=== PATIENT | female | born 1940 | race Caucasian/White ===

== ENCOUNTER 2019-09-08 14:14 | Emergency (ER) | payer MEDICARE, SELFPAY ==
[2019-09-08 14:18] VITALS: BP 147/65; PULSE 87; RESP 15; TEMP 36.8; O2SAT 95
--- NOTE | 2019-09-08 15:17 | ED.BACK ---
HPI - Back Pain/Injury <Jenny Upton PA-C - Last Filed: 09/08/19 22:25> General Chief Complaint: Back Pain/Injury Stated Complaint: Fell and having pain is worse in lower back Time Seen by Provider: 09/08/19 14:55 Source: patient and family Limitations: no limitations History of Present Illness HPI Narrative: This is an 79-year-old hx of hearing loss who lives in an elder care facility called [facility] and was brought in by her daughter to the emergency department because she has been having low back pain since she had a fall on Friday at the facility. Caregivers reported that she was found sitting on the ground on the carpet with fiore in her hand, that her walker was not nearby and she was not using it at the time of the fall. Since that time she has been able to ambulate and was actually doing better yesterday ( Friday), but then today her back pain increased again and her daughter was concerned and brought her in for assessment. Her daughter reports that she has had numerous fractures, including fracture of her coccyx previously, but no other spinal column fractures. She has otherwise been in her normal state of health and has no complaints of pain other than her low back in the middle. She states the pain does not radiate down her leg or to anywhere else in her body. And she says that she has been able to walk with her walker since the fall occurred but she ?does not get around a whole lot these days?. Daughter reports that she does not take any blood thinners, reports that she does not do well on morphine because it makes her have weird hallucinations, but other than that her only allergy is to penicillin. She has been taking Tylenol for the pain which has given her limited relief. She denies numbness, tingling, fever, shortness of breath, weakness of her extremities, urinary symptoms, loss of bowel or bladder function, saddle paresthesias, abdominal pain or any other symptoms. MD Complaint: back pain and back injury Onset (ago): day(s) (2) Duration: constant Similar Symptoms Previously: No Location: lumbar spine and sacrum Severity: moderate Quality: aching Radiation: none Severity scale (1-10): 9 (with certain movements, 1 when still) Relieving factors: immobilization and medication (limited relief with tylenol) Exacerbating factors: movement, supine positioning and walking Context: fall Associated symptoms: denies other symptoms Treatments prior to arrival: acetaminophen Related Data Previous Rx's Medication Instructions Recorded lidocaine 2 patch TOP DAILY #30 each 09/08/19 oxycodone 10 mg PO BID PRN #12 tab NS 09/08/19 sennosides [senna] 8.6 mg PO BID PRN #10 cap 09/08/19 Allergies Allergy/AdvReac Type Severity Reaction Status Date / Time morphine Allergy Verified 09/08/19 14:22 Penicillins Allergy Verified 09/08/19 14:22 Review of Systems <Jenny Upton PA-C - Last Filed: 09/08/19 22:25> Review of Systems Narrative: GENERAL: Denies chills, fatigue, malaise, fever, sweats. HEENT: Denies sinus pain, ear pain, sore throat, difficulty swallowing, dizziness. RESPIRATORY: Denies dyspnea, cough, wheezing, hemoptysis, sputum. CARDIOVASCULAR: Denies chest pain, palpitations, orthopnea, edema, GASTROINTESTINAL: Denies nausea, vomiting, abdominal pain, diarrhea, constipation, melena. : Denies dysuria, frequency, incontinence, hematuria, urinary retention. MUSCULOSKELETAL: Positive for bony pain over the lumbar spine area and sacrum, denies weakness, joint pain SKIN: Denies rash, skin lesions, or other NEUROLOGIC: Denies weakness, headache, numbness, change in speech, confusion, seizures, incoordination, uses a walker to ambulate chronically. PSYCHIATRIC: No concerning psychosocial issues. 12 point review of systems is negative except for those stated above Patient History <Jenny Upton PA-C - Last Filed: 09/08/19 22:25> Social History Smoking Status: Unknown if ever smoked Smoking Status: Unknown if ever smoked alcohol intake frequency: holidays/special occasions only Substance Use Type: does not use Exam <Jenny Upton PA-C - Last Filed: 09/08/19 22:25> Narrative Exam Narrative: GENERAL: 79 year old patient appears stated age. Well-nourished, well-developed patient, in mild distress. HEAD: Atraumatic. Normocephalic. EYES: Pupils equal round and reactive. Extraocular motions intact. No scleral icterus. No injection or drainage. ENT: Nose without bleeding, purulent drainage. Throat without erythema, tonsillar hypertrophy or exudate. Airway patent. NECK: Trachea midline. Non tender CARDIOVASCULAR: Regular rate and rhythm without murmurs, gallops, or rubs. RESPIRATORY: Clear to auscultation. Breath sounds equal bilaterally. No wheezes, rales, or rhonchi. GASTROINTESTINAL: Abdomen soft, non-tender, nondistended. EXTREMITIES: No edema or joint tenderness. BACK: She is very tender over the lumbar and sacral spine midline over the processes most notably L4-L6, and over the sacrum midline; Slightly kyphotic, without deformity or crepitance. No flank tenderness, no paraspinal muscle tenderness. NEURO: AOx3. SKIN: No rash or erythema of visible areas Initial Vital Signs Initial Vital Signs: Vital Signs Temperature 98.2 F 09/08/19 14:18 Pulse Rate 87 09/08/19 14:18 Respiratory Rate 15 09/08/19 14:18 Blood Pressure 147/65 H 09/08/19 14:18 Pulse Oximetry 95 09/08/19 14:18 <Keron Solano DO - Last Filed: 09/09/19 07:11> Initial Vital Signs Initial Vital Signs: Vital Signs Temperature 98.2 F 09/08/19 14:18 Pulse Rate 87 09/08/19 14:18 Respiratory Rate 15 09/08/19 14:18 Blood Pressure 147/65 H 09/08/19 14:18 Pulse Oximetry 95 09/08/19 14:18 Course <Jenny Upton PA-C - Last Filed: 09/08/19 22:25> Orders Ordered: Discontinued Medications Oxycodone HCl (Oxycontin) 10 mg PO BID [facility] Oxycodone/Acetaminophen (Percocet 5/325) 1 tab PO NOW ONE Stop: 09/08/19 16:28 Last Admin: 09/08/19 16:38 Dose: 1 tab Documented by: VJ Vital Signs Vital signs: Vital Signs - 8 hr 09/08/19 17:56 Temperature 98.3 F Pulse Rate 82 Respiratory Rate 16 Blood Pressure 129/63 Pulse Oximetry 97 <DO Viviana Suarez Last Filed: 09/09/19 07:11> Orders Ordered: Discontinued Medications Oxycodone HCl (Oxycontin) 10 mg PO BID DANIELA Oxycodone/Acetaminophen (Percocet 5/325) 1 tab PO NOW ONE Stop: 09/08/19 16:28 Last Admin: 09/08/19 16:38 Dose: 1 tab Documented by: VJ Vital Signs Vital signs: Vital Signs - 8 hr 09/08/19 17:56 Temperature 98.3 F Pulse Rate 82 Respiratory Rate 16 Blood Pressure 129/63 Pulse Oximetry 97 MDM - Back Pain/Injury <Jenny Upton PA-C - Last Filed: 09/08/19 22:25> Imaging Data xray sacrum: Attestation: I personally reviewed and interpreted this imaging study as follows: Radiologist's Impression: [address] [address] XRay Report Signed Patient: Tari OlsonMR#: [id number] : 9Acct:[id number] Age/Sex: 79 / FDate of Service: 09/08/19 Loc: ED Accession Number: [id number] Procedure: XR sacrum coccyx min 2V Ordering Provider: Jenny Upton P.A-C PROCEDURE: XR SACRUM COCCYX MIN 2V INDICATIONS: fall, LBP TECHNIQUE: 3 views of the sacrum and coccyx acquired. COMPARISON: None. FINDINGS: Bones: No dislocations. No suspicious bony lesions. There is a partially visualized L2 moderately severe compression fracture but chronicity is uncertain Soft tissues: Visualized bowel gas pattern is normal. No suspicious soft tissue densities. IMPRESSION: No sacral injury is found. Note is made of an L2 moderately severe compression fracture but chronicity is uncertain. Additionally, through the midline of the low pelvis a partially visualized catheter can be seen to be present, perhaps a ventriculostomy catheter. No relevant comparison plain films are available for review. Please also see same date lumbosacral spine study identifying additional compression fractures. Dictated by: Clayton Simeon M.D. on 09/08/2019 at 16:54 Approved by: Clayton Simeon M.D. on 09/08/2019 at 16:56 xray lumbar: Radiologist's Impression: [address] [address] XRay Report Signed Patient: Tari OlsonMR#: [id number] : 9Acct:[id number] Age/Sex: 79 / FDate of Service: 09/08/19 Loc: ED Accession Number: [id number] Procedure: XR lumbar spine 2-3V Ordering Provider: Jenny Upton P.A-C PROCEDURE: XR LUMBAR SPINE 2-3V INDICATIONS: fall, Lumbar/sacral pain TECHNIQUE: 3 views of the lumbar spine were acquired. COMPARISON: None. FINDINGS: Bones: 5 [id number] vertebrae are present. There is mild convex rightward bony alignment. There are several vertebral body compression fractures, most prominent at L2 but also present at the upper endplate of L1 and T12.. No suspicious bony lesions. Soft tissues: Overlying bowel gas pattern is normal. No suspicious soft tissue calcifications. IMPRESSION: Chronicity of the 3 identified compression fractures from T12-L2 is indeterminant but in the setting of acute onset pain after trauma acute fractures would be suspected. MR scanning can assist in differentiating between acute versus chronic. No prior comparisons through this area. Dictated by: Clayton Simeon M.D. on 09/08/2019 at 16:53 Approved by: Clayton Simeon M.D. on 09/08/2019 at 16:54 [facility] Narrative Medical decision making narrative: This is a well-appearing 79-year-old who uses a walker chronically, has kyphosis and a history of multiple extremity fractures and coccyx fx who presents with her daughter from a care facility where she had a fall on Friday, and presents today with worsening back pain since the time of that fall. Patient is otherwise well and has no other complaints of pain and has been in normal state of health, is not on blood thinners, labs were not ordered. X-ray revealed T12-L1 and L2 compression fractures of unknown chronicity, however given her recent acute injury and new onset of acute pain I suspect that these fractures are a result of her fall and the cause of her current low back pain. After discussion with attending physician Dr. Solano, outpatient follow up was deemed appropriate She and her daughter were encouraged to see Orthopedics Spine at [facility], she was provided with prescriptions to the online pharmacy associated with [facility], ([facility]) topical analgesia as well as a short-term prescription of opioid pain medicine, advised she can continue using tylenol for pain also, and prescribed senna for opioid induced constipation prevention. She was encouraged to continue to ambulate with her walker as usual and she and her daughter were provided with emergency return precautions. Discharge Plan Departure Patient Disposition: Home Clinical Impression: Acute low back pain due to trauma Closed compression fracture of lumbar vertebra Qualifiers: Encounter type: initial encounter Lumbar vertebra fracture level: L2 Qualified Code(s): S32.020A - Wedge compression fracture of second lumbar vertebra, initial encounter for closed fracture Closed compression fracture of thoracic vertebra Qualifiers: Encounter type: initial encounter Qualified Code(s): S22.000A - Wedge compression fracture of unspecified thoracic vertebra, initial encounter for closed fracture Compression fx, lumbar spine Qualifiers: Encounter type: initial encounter Lumbar vertebra fracture level: L1 Qualified Code(s): S32.010A - Wedge compression fracture of first lumbar vertebra, initial encounter for closed fracture Discharge Date/Time: 09/08/19 17:58 Instructions: Vertebral Compression Fracture, DI for Vertebral Fracture, DI for Low Back Pain Activity Restrictions/Additional Instructions: Thank you for letting us the primary care today in the emergency department. There is no evidence of an emergent or life threatening illness at this time, but follow up with your doctor in 1-2 days is recommended nonetheless to continue to rule out serious underlying causes of your symptoms. Please call the office for an appointment. Please return to the Emergency Department for any worsening or persistent symptoms. Please take medications as directed. The x-rays did suggest that there are compression fractures the thoracic 12th vertebra as well as the lumbar 1st and 2nd vertebra. These may be acute fractures and this could explain the pain that you have been having since her fall on Friday. It is very important that you follow-up with orthopedics in the next 2-5 days for further evaluation. I provided a referral for the [facility] and Tari will need to see someone who specializes in spine. I am prescribing medicine to help with pain control as well as medicine to help you ensure you have regular bowel movements, as pain medicines can sometimes slow things down. It is safe to continue to take over the counter tylenol for pain also. All other medicines were E-prescribed to [facility] pharmacy as per your request. Tari should continue to do her normal activities as much as possible, including walking with her walker, this is important for her healing and maintaining her level of mobility. If she develops new symptoms that are concerning such as loss of bowel or bladder function, numbness or tingling in her lower extremities or genital area, fever, worsening pain, or any other symptoms of concern please seek medical care return to the emergency department. Prescriptions: New lidocaine 5 % adhesive patch,medicated 2 patch TOP DAILY Qty: 30 RF: 0 senna 8.6 mg capsule 8.6 mg PO BID PRN (Reason: constipation) Qty: 10 RF: 0 oxycodone 10 mg tablet 10 mg PO BID PRN (Reason: pain) Qty: 12 RF: 0 Referrals: [facility] [Provider Group] (Ortho spine) Katiana Olvera MD [Primary Care Provider] - <Keron Solano DO - Last Filed: 09/09/19 07:11> Cosign ED Attending Cosignature Attestation: Dr Solano Co-Sign Statement: I was available for consultation during this patient's emergency department visit. This chart is signed by myself for administrative purposes only. I did not have direct contact with this patient during this visit. They were seen independently by the APC.
--- NOTE | 2019-09-08 15:34 | DI.RAD.S_ITS ---
PROCEDURE: XR LUMBAR SPINE 2-3V INDICATIONS: fall, Lumbar/sacral pain TECHNIQUE: 3 views of the lumbar spine were acquired. COMPARISON: None. FINDINGS: Bones: 5 [id number] vertebrae are present. There is mild convex rightward bony alignment. There are several vertebral body compression fractures, most prominent at L2 but also present at the upper endplate of L1 and T12.. No suspicious bony lesions. Soft tissues: Overlying bowel gas pattern is normal. No suspicious soft tissue calcifications. IMPRESSION: Chronicity of the 3 identified compression fractures from T12-L2 is indeterminant but in the setting of acute onset pain after trauma acute fractures would be suspected. MR scanning can assist in differentiating between acute versus chronic. No prior comparisons through this area. Dictated by: Clayton Simeon M.D. on 09/08/2019 at 16:53 Approved by: Clayton Simeon M.D. on 09/08/2019 at 16:54
--- NOTE | 2019-09-08 15:34 | DI.RAD.S_ITS ---
PROCEDURE: XR SACRUM COCCYX MIN 2V INDICATIONS: fall, LBP TECHNIQUE: 3 views of the sacrum and coccyx acquired. COMPARISON: None. FINDINGS: Bones: No dislocations. No suspicious bony lesions. There is a partially visualized L2 moderately severe compression fracture but chronicity is uncertain Soft tissues: Visualized bowel gas pattern is normal. No suspicious soft tissue densities. IMPRESSION: No sacral injury is found. Note is made of an L2 moderately severe compression fracture but chronicity is uncertain. Additionally, through the midline of the low pelvis a partially visualized catheter can be seen to be present, perhaps a ventriculostomy catheter. No relevant comparison plain films are available for review. Please also see same date lumbosacral spine study identifying additional compression fractures. Dictated by: Clayton Simeon M.D. on 09/08/2019 at 16:54 Approved by: Clayton Simeon M.D. on 09/08/2019 at 16:56
--- NOTE | 2019-09-08 16:22 | PC.NURSE ---
pt up to bedside commode but no urine output noted.
[2019-09-08] MEDS: OXYCODONE/ACETAMINOPHEN 5/325 TABLET 1 TAB PO (16:38)
[2019-09-08 17:56] VITALS: BP 129/63; PULSE 82; RESP 16; TEMP 36.8; O2SAT 97
== END 2019-09-08 17:58 | disposition home or self-care (01) ==
PROVIDERS: Emergency Provider Student in an Organized Health Care Education/Training Program; PCP Internal Medicine
DX: S32.020A Wedge compression fracture of second lumbar vertebra, initial encounter for closed fracture (principal); S22.000A Wedge compression fracture of unspecified thoracic vertebra, initial encounter for closed fracture; S32.010A Wedge compression fracture of first lumbar vertebra, initial encounter for closed fracture; W19.XXXA Unspecified fall, initial encounter
CPT/HCPCS: 72100; 72220; 99283

== ENCOUNTER → 2019-09-29 13:47 | Outpatient (CLI) | payer MEDICARE, SELFPAY | PROVIDERS: PCP Internal Medicine; Referring Provider Orthopaedic Surgery; Visit Provider Orthopaedic Surgery | DX: M48.56XA Collapsed vertebra, not elsewhere classified, lumbar region, initial encounter for fracture (principal); Z53.8 Procedure and treatment not carried out for other reasons ==

== ENCOUNTER → 2020-08-21 15:38 | Outpatient (CLI) | payer MEDICARE, SELFPAY ==
[2020-08-21 17:58] LABS: Alanine Aminotransferase 11 IU/L (<35); Albumin 4.1 g/dL (3.5-5.0); Albumin Globulin Ratio 1.2 (1.0-2.8); Alkaline Phosphatase 73 U/L (38-126); Aspartate Aminotransferase 19 IU/L (14-36); Bilirubin Total 0.1 mg/dL (0.2-1.3); Blood Urea Nitrogen 22 mg/dL (7-17); Calcium 9.7 mg/dL (8.4-10.2); Carbon Dioxide 34 mmol/L (22-32); Chloride 100 mmol/L (98-107); Cholesterol 210 mg/dL (140-199); Estimated Glomerular Filt Rate > 60.0 mL/min (>60); Globulin 3.3 g/dL (1.7-4.1); Glucose 84 mg/dL (80-110); HDL Cholesterol 58 mg/dL (40-60); HEMOLYSIS < 15 (0-50); LDL Cholesterol Calculated 139 mg/dL (<100); Potassium 4.3 mmol/L (3.4-5.1); Sodium 141 mmol/L (137-145); Total Protein 7.4 g/dL (6.3-8.2); Triglycerides 67 mg/dL (35-150)
== END ==
PROVIDERS: PCP Internal Medicine; Referring Provider Internal Medicine; Visit Provider Internal Medicine
DX: E78.5 Hyperlipidemia, unspecified (principal)
CPT/HCPCS: 36415; 80053; 80061

== ENCOUNTER 2021-01-11 18:22 | Emergency (ER) | payer MEDICARE, SELFPAY ==
--- NOTE | 2021-01-11 18:28 | DI.CT.S_ITS ---
PROCEDURE: CT PEL WO CON INDICATIONS: fall with sacral / pelvic pain TECHNIQUE: Noncontrast 3 mm axial sections acquired through the bony pelvis, with coronal and sagittal reformatting. COMPARISON: None. FINDINGS: Image quality: Excellent. Bones: Diffuse osteopenia. No suspicious intraosseous lesions. Minimal grade 1 anterolisthesis of L4 on L5 likely related to moderate facet arthropathy. No acute compression fractures of the lower lumbar spine. No definite fractures of the sacrum. There is mild posterior displacement of the distal coccyx which may be chronic versus possible subluxation. No hip fracture seen. Soft tissues: Extensive fecal material seen throughout the imaged bowel and colon. Scattered colonic diverticulosis without acute diverticulitis. Distal ventriculoperitoneal shunt tubing terminates in the lower abdomen. No surrounding fluid collections. Dense atherosclerotic calcifications of the abdominal aorta and iliac vessels without aneurysmal dilatation. No pelvic adenopathy. Visualized urinary bladder is unremarkable. IMPRESSION: 1. Diffuse osteopenia. 2. No definite fractures identified in the sacrum. No definite hip fracture seen on either side. Mild posterior displacement mint of the coccyx, likely chronic. 3. Multilevel lower lumbar spondylosis with minimal grade 1 anterolisthesis of L4 on L5 likely related to moderate facet arthropathy. No acute compression fractures. 4. Colonic diverticulosis without acute diverticulitis. 5. Atherosclerosis. Dictated by: Rashel Parish M.D. on 01/11/2021 at 18:54 Approved by: Rashel Parish M.D. on 01/11/2021 at 19:03
[2021-01-11 18:29] VITALS: BP 130/69; PULSE 71; RESP 16; TEMP 36.3; BMI 21.2
--- NOTE | 2021-01-11 18:29 | ED_ITS ---
HPI - Back Pain/Injury General Chief Complaint: Fall Stated Complaint: GLF Time Seen by Provider: 01/11/21 18:28 History of Present Illness HPI Narrative: 80F nonsmoker from a correction with a DNR presents by EMS for evaluation of low back pain after a ground level fall. This fall was witnessed and she landed on her tailbone and complains of pain in her tailbone and lower back. She denies any head neck or upper back pain. She has no hip pain. She denies any prodromal symptoms such as dizziness, weakness or lightheadedness. She is a poor historian and much of the history is through paramedics and folks from the house Related Data Previous Rx's Medication Instructions Recorded lidocaine 5 % topical patch 2 patch TOP DAILY #30 each 09/08/19 oxycodone 10 mg tablet 10 mg PO BID PRN #12 tab NS 09/08/19 sennosides 8.6 mg capsule (senna) 8.6 mg PO BID PRN #10 cap 09/08/19 oxycodone 5 mg tablet 5 mg PO Q4-6H PRN #20 tab 01/11/21 Allergies Allergy/AdvReac Type Severity Reaction Status Date / Time morphine Allergy Verified 09/08/19 14:22 Penicillins Allergy Verified 09/08/19 14:22 Review of Systems Review of Systems ROS Unobtainable: Unobtainable due to mental status/LOC Patient History Social History Smoking Status: Unknown if ever smoked Smoking Status: Unknown if ever smoked alcohol intake frequency: holidays/special occasions only Substance Use Type: does not use Exam Narrative Exam Narrative: GENERAL: [80 year old patient appears stated age. Pleasantly confused, GCS 13 HEAD: Atraumatic. Normocephalic. EYES: Pupils equal round and reactive. Extraocular motions intact. No scleral icterus. No injection or drainage. ENT: Nose without bleeding, purulent drainage. Throat without erythema, tonsillar hypertrophy or exudate. Airway patent. NECK: Trachea midline. Non tender CARDIOVASCULAR: Regular rate and rhythm without murmurs, gallops, or rubs. RESPIRATORY: Clear to auscultation. Breath sounds equal bilaterally. No wheezes, rales, or rhonchi. GASTROINTESTINAL: Abdomen soft, non-tender, nondistended. EXTREMITIES: No edema or joint tenderness. No hip or knee pain BACK: Tender in the right upper sacrum and coccyx, no midline tenderness, step- offs or crepitance in the spinal column NEURO: AOx3. SKIN: No rash or erythema of visible areas Initial Vital Signs Initial Vital Signs: Vital Signs Temperature 97.4 F L 01/11/21 18:29 Pulse Rate 71 01/11/21 18:29 Respiratory Rate 16 01/11/21 18:29 Blood Pressure 130/69 01/11/21 18:29 Course Orders Ordered: Discontinued Medications Lidocaine (Lidocaine Patch 1 Each Adh..Patch) 1 each TOP NOW ONE Stop: 01/11/21 19:51 Last Admin: 01/11/21 20:18 Dose: 1 each Documented by: ALEJANDRA Oxycodone/Acetaminophen (Oxycodone/Apap 5/325 Prepack) 1 bottle MISC SEEINSTR ONE Stop: 01/11/21 19:51 Last Admin: 01/11/21 20:17 Dose: 1 bottle Documented by: ALEJANDRA Vital Signs Vital signs: Vital Signs - 8 hr 01/11/21 20:35 Pulse Rate 80 Respiratory Rate 20 Blood Pressure 140/83 Pulse Oximetry 90 L MDM - Back Pain/Injury Imaging Data CT scan - abdomen/pelvis: Radiologist's Impression: [place] [address] CT Scan Report Signed Patient: Tari Olson MR#: [id number] : 1940 Acct:[id number] Age/Sex: 80 / F Date of Service: 01/11/21 Loc: ED Accession Number: [id number] ?? Procedure: CT pelvis wo con Ordering Provider: Jv Wagner D.O. PROCEDURE:? CT PEL WO CON ? INDICATIONS:? fall with sacral / pelvic pain ? TECHNIQUE:? Noncontrast 3 mm axial sections acquired through the bony pelvis, with coronal and sagittal reformatting.? ? COMPARISON:? None. ? FINDINGS:? Image quality:? Excellent.? ? Bones:? Diffuse osteopenia.? No suspicious intraosseous lesions.? Minimal grade 1 anterolisthesis of L4 on L5 likely related to moderate facet arthropathy.? No acute compression fractures of the lower lumbar spine.? No definite fractures of the sacrum.? There is mild posterior displacement of the distal coccyx which may be chronic versus possible subluxation.? No hip fracture seen. ? Soft tissues:? Extensive fecal material seen throughout the imaged bowel and c olon.? Scattered colonic diverticulosis without acute diverticulitis.? Distal ventriculoperitoneal shunt tubing terminates in the lower abdomen.? No surrounding fluid collections.? Dense atherosclerotic calcifications of the abdominal aorta and iliac vessels without aneurysmal dilatation.? No pelvic adenopathy.? Visualized urinary bladder is unremarkable. ? ? IMPRESSION:? ? 1. Diffuse osteopenia. ? 2. No definite fractures identified in the sacrum.? No definite hip fracture seen on either side.? Mild posterior displacement mint of the coccyx, likely chronic. ? 3. Multilevel lower lumbar spondylosis with minimal grade 1 anterolisthesis of L4 on L5 likely related to moderate facet arthropathy.? No acute compression fractures. ? 4. Colonic diverticulosis without acute diverticulitis. ? 5. Atherosclerosis.? Dictated by: Rashel Parish M.D. on 01/11/2021 at 18:54 ? ? Approved by: Rashel Parish M.D. on 01/11/2021 at 19:03 ? Discharge Plan Departure Patient Disposition: Home Clinical Impression: Coccyx contusion Qualifiers: Encounter type: initial encounter Qualified Code(s): S30.0XXA - Contusion of lower back and pelvis, initial encounter Instructions: How to Prevent Falls Prescriptions: New oxycodone 5 mg tablet 5 mg PO Q4-6H PRN (Reason: pain) Qty: 20 RF: 0 No Action lidocaine 5 % adhesive patch,medicated 2 patch TOP DAILY Qty: 30 RF: 0 senna 8.6 mg capsule 8.6 mg PO BID PRN (Reason: constipation) Qty: 10 RF: 0 oxycodone 10 mg tablet 10 mg PO BID PRN (Reason: pain) Qty: 12 RF: 0 Referrals: Katiana Olvera MD [Primary Care Provider] -
[2021-01-11] MEDS: OXYCODONE/APAP 5/325 PREPACK 1 BOTTLE MISC (20:17)
[2021-01-11] MEDS: LIDOCAINE PATCH 1 EACH ADH..PATCH TOP (20:18)
[2021-01-11 20:35] VITALS: BP 140/83; PULSE 80; RESP 20; O2SAT 90
== END 2021-01-11 21:10 | disposition home or self-care (01) ==
PROVIDERS: Emergency Provider Emergency Medicine; PCP Internal Medicine
DX: S30.0XXA Contusion of lower back and pelvis, initial encounter (principal); W19.XXXA Unspecified fall, initial encounter
CPT/HCPCS: 72192; 99282; 99284

== ENCOUNTER 2022-01-14 23:32 | Observation (INO) | payer MEDICARE, SELFPAY ==
--- NOTE | 2022-01-14 23:34 | DI.RAD.S_ITS ---
PROCEDURE: XR CHEST 1V INDICATIONS: fall, trauma, preop TECHNIQUE: One view of the chest was acquired. COMPARISON: None. FINDINGS: Surgical changes and devices: None. Lungs and pleura: Lungs are clear. No pleural effusions or pneumothorax. Mediastinum: Mediastinal contours appear normal. Heart size is normal. Bones and chest wall: There is deformity of the proximal humerus consistent with sequelae of a prior fracture of the humeral head and neck. No suspicious bony lesions. Overlying soft tissues appear unremarkable. IMPRESSION: 1. No acute cardiopulmonary disease. Dictated by: Octaviano Brunson M.D. on 01/15/2022 at 1:15 Approved by: Octaviano Brunson M.D. on 01/15/2022 at 1:16
[2022-01-14 23:35] VITALS: BP 113/58; PULSE 87; RESP 18; TEMP 37; O2SAT 89; BMI 18.4
[2022-01-14 23:48] LABS: Add Manual Diff / Slide Review NO; Basophils Absolute Auto 0 /uL (0-100); Basophils Percent Auto 0.2 % (0-2); Eosinophils Absolute Auto 0 /uL (0-450); Eosinophils Percent Auto 0.3 % (2-4); Hematocrit 35.9 % (36-46); Hemoglobin 12.1 g/dL (12.0-16.0); Lymphocytes Absolute Auto 700 /uL (1100-4500); Lymphocytes Percent Auto 7.1 % (25-40); Mean Corpuscular HGB Conc 33.7 % (30-36); Mean Corpuscular Volume 94.9 fL (80-100); Monocytes Absolute Auto 800 /uL (0-900); Monocytes Percent Auto 8.3 % (3-14); Neutrophils Absolute Auto 8400 /uL (1500-7000); Neutrophils Percent Auto 84.1 % (50-75); Platelet Count 233 X10^3/uL (150-400); Red Blood Cell Count 3.79 X10^6/uL (4.0-5.2); Red Cell Distribution Width 14.1 % (11.6-14.8)
[2022-01-14 23:54] LABS: Alanine Aminotransferase 15 IU/L (<35); Albumin 4.2 g/dL (3.5-5.0); Albumin Globulin Ratio 1.3 (1.0-2.8); Alkaline Phosphatase 72 U/L (38-126); Aspartate Aminotransferase 19 IU/L (14-36); BUN Creatinine Ratio 36.1 (6-22); Bilirubin Total 0.2 mg/dL (0.2-1.3); Blood Urea Nitrogen 22 mg/dL (7-17); Calcium 9.2 mg/dL (8.4-10.2); Carbon Dioxide 30 mmol/L (22-32); Chloride 99 mmol/L (98-107); Creatine Kinase 47 U/L (30-135); Estimated Glomerular Filt Rate > 60 mL/min (>60); Globulin 3.3 g/dL (1.7-4.1); Glucose 147 mg/dL (80-110); HEMOLYSIS < 15 (0-50); Magnesium 1.9 mg/dL (1.6-2.3); Potassium 4.4 mmol/L (3.4-5.1); Sodium 139 mmol/L (137-145); Total Protein 7.5 g/dL (6.3-8.2)
[2022-01-15 00:06] LABS: NT-proBNP (BNP-Adult 18+) 196 pg/mL (<450); Troponin I < 0.012 ng/mL (0.01-0.034)
[2022-01-15] MEDS: SODIUM CHLORIDE 0.9% 500 ML 1000 ML IV (00:07)
[2022-01-15 00:09] LABS: COVID19 -Nasal RAPID Negative (Negative)
[2022-01-15 00:25] LABS: PCO2 ABG 47.2 mmHg (35-45); pH ABG 7.42 (7.35-7.45)
[2022-01-15 00:26] LABS: Fractionated Inspired Oxygen 28; HCO3 ABG 30 mmol/L (22-26); Oxygen Saturation ABG 97 % (95-100); PO2 ABG 92 mmHg (80-100); TCO2 ABG 32 mmol/L (21-31)
--- NOTE | 2022-01-15 00:46 | ED_ITS ---
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 The patient is historically a very poor historian and has short-term memory loss and family states that her current condition is at her neurologic baseline. EMS was activated when the patient was too weak to ambulate to the bathroom. She lives at an adult alf and can normally get herself to the bathroom with the use of a walker under her own power but tonight she required distance of 2 CNAs. EMS found her to be in respiratory distress with pulse ox in the mid 80s on their arrival, she was put on 4 L by nasal cannula and brought here. She is had no recent hospitalizations, history of blood clot and denies any fever or chills. She has no chest pain, nausea, vomiting or diarrhea. She is a DNR with a focus on comfort, POA is at the bedside and is in agreement with treatment using antibiotics if indicated Related Data Previous Rx's Medication Instructions Recorded lidocaine 5 % topical patch 2 patch topical DAILY #30 ea 09/08/19 oxycodone 10 mg tablet 10 mg PO BID PRN pain #12 tabs 09/08/19 sennosides 8.6 mg capsule (senna) 8.6 mg PO BID PRN constipation #10 09/08/19 caps oxycodone 5 mg tablet 5 mg PO Q4-6H PRN pain #20 tabs 01/11/21 Allergies Allergy/AdvReac Type Severity Reaction Status Date / Time morphine Allergy Verified 09/08/19 14:22 Penicillins Allergy Verified 09/08/19 14:22 Review of Systems Review of Systems Narrative: GENERAL: See HPI HEENT: Denies sinus pain, ear pain, sore throat, difficulty swallowing, dizziness. RESPIRATORY: See HPI CARDIOVASCULAR: Denies chest pain, palpitations, orthopnea, edema, GASTROINTESTINAL: Denies nausea, vomiting, abdominal pain, diarrhea, constipation, melena. : Denies dysuria, frequency, incontinence, hematuria, urinary retention. MUSCULOSKELETAL: denies weakness, joint pain, or bony pain SKIN: Denies rash, skin lesions, or other NEUROLOGIC: Denies weakness, headache, numbness, change in speech, confusion, seizures, incoordination. PSYCHIATRIC: No concerning psychosocial issues. 12 point review of systems is negative except for those stated above Patient History Social History Smoking Status: Never smoker Smoking Status: Never smoker alcohol intake frequency: holidays/special occasions only Substance Use Type: does not use Exam Narrative Exam Narrative: GENERAL: [81] year old patient appears stated age. Well-developed patient, in mild distress. Pleasantly confused, GCS 14 HEAD: Atraumatic. Normocephalic. EYES: Pupils equal round and reactive. Extraocular motions intact. No scleral icterus. No injection or drainage. Left eye ptosis, consequence of prior neurosurgery ENT: Nose without bleeding, purulent drainage. Throat without erythema, tonsillar hypertrophy or exudate. Airway patent. NECK: Trachea midline. Non tender CARDIOVASCULAR: Regular rate and rhythm without murmurs, gallops, or rubs. RESPIRATORY: Some increased work of breathing, wet sounding cough from the door GASTROINTESTINAL: Abdomen soft, non-tender, nondistended. EXTREMITIES: No edema or joint tenderness. BACK: Nontender without deformity or crepitance. No flank tenderness. NEURO: Cranial nerves 2-12 grossly intact SKIN: No rash or erythema of visible areas Initial Vital Signs Initial Vital Signs: Vital Signs Temperature 98.6 F 01/14/22 23:35 Pulse Rate 87 01/14/22 23:35 Respiratory Rate 18 01/14/22 23:35 Blood Pressure 113/58 L 01/14/22 23:35 Pulse Oximetry 89 L 01/14/22 23:35 Oxygen Delivery Method 01/14/22 23:35 Course Orders Ordered: ED Orders 01/14/22 23:34 XR chest 1V Stat Complete Blood Count AUTO DIFF Stat Comprehensive Metabolic Panel Stat Lactate (Lactic Acid) Stat Magnesium Stat NT-proBNP (BNP-Adult 18+) Stat Troponin & CK Cardiac Panel Stat EKG-12 Lead Stat 01/14/22 23:40 COVID19 -Nasal RAPID/Pre-Proc Stat 01/14/22 23:49 Arterial Blood Gas Stat 01/14/22 23:59 Blood Culture Stat 01/15/22 EKG-12 Lead Routine 01/15/22 00:33 Urine Culture Stat Urine Microscopic Stat 01/15/22 00:48 D Dimer Stat Acetaminophen (Acetaminophen 325 Mg Tablet) 650 mg PO Q6HR PRN PRN Reason: Fever/Mild Pain (1-3) Al Hydrox/Mg Hydrox/Simethicone (Mag Hydrox/Alum/Simeth 30 Ml Udc) 30 ml PO Q6HR PRN PRN Reason: Dyspepsia Albuterol/Ipratropium (Albuterol/Ipratropium 3 Ml Ampul) 3 ml INH RTQ4HR PRN PRN Reason: Shortness Of Breath Enoxaparin Sodium (Enoxaparin 40 Mg/0.4 Ml Syringe) 40 mg SUBCUT DAILY [facility] Sodium Chloride (Normal Saline 0.9%) 1,000 mls @ 60 mls/hr IV CONT DANIELA Ceftriaxone Sodium 1,000 mg/ (Sodium Chloride) 100 mls @ 200 mls/hr IV Q24H [facility] Stop: 01/20/22 08:59 Azithromycin 500 mg/ Dextrose 250 mls @ 250 mls/hr IV Q24H [facility] Stop: 01/18/22 04:59 Ondansetron HCl (Ondansetron 4 Mg/2 Ml Inj) 4 mg IV Q8HR PRN PRN Reason: Nausea And Vomiting Oxycodone HCl (Oxycodone Ir 5 Mg Tablet) 5 mg PO Q4HR PRN PRN Reason: Pain (4-10) Prednisone (Prednisone 20 Mg Tablet) 40 mg PO DAILY [facility] Stop: 01/20/22 08:59 Sennosides (Sennosides 8.6 Mg Tablet) 17.2 mg PO BEDTIME PRN PRN Reason: Constipation Discontinued Medications Sodium Chloride (Normal Saline 0.9%) 500 mls @ 1,000 mls/hr IV BOLUS ONE Stop: 01/15/22 00:02 Last Infusion: 01/15/22 00:49 Dose: 0 mls/hr Documented By: Admin: 01/15/22 00:07 Dose: 1,000 mls/hr Documented By: SHANE Ceftriaxone Sodium 1,000 mg/ (Sodium Chloride) 100 mls @ 200 mls/hr IV NOW ONE Stop: 01/15/22 01:43 Last Admin: 01/15/22 02:15 Dose: 200 mls/hr Azithromycin 500 mg/ Dextrose 250 mls @ 250 mls/hr IV NOW ONE Stop: 01/15/22 01:43 Vital Signs Vital signs: Vital Signs - 8 hr 01/14/22 23:35 Temperature 98.6 F Pulse Rate 87 Respiratory Rate 18 Blood Pressure 113/58 L Pulse Oximetry 89 L Oxygen Delivery Method Room Air MDM - Weakness Lab Data Result diagrams: 01/14/22 23:34 01/14/22 23:34 Labs: Lab Results 01/14/22 01/14/22 01/14/22 Range/Units 23:34 23:34 23:34 WBC 10.0 (4.5-11.0) X10^3/uL RBC 3.79 L (4.0-5.2) X10^6/uL Hgb 12.1 (12.0-16.0) g/dL Hct 35.9 L (36-46) % MCV 94.9 (80-100) fL MCH 32.0 (26-34) PG MCHC 33.7 (30-36) % RDW 14.1 (11.6-14.8) % Plt Count 233 (150-400) X10^3/uL Neut % (Auto) 84.1 H (50-75) % Lymph % (Auto) 7.1 L (25-40) % [place] % (Auto) 8.3 (3-14) % Eos % (Auto) 0.3 L (2-4) % Baso % (Auto) 0.2 (0-2) % Neut # (Auto) 8400 H (0835-6038) /uL Lymph # (Auto) 700 L (6626-4722) /uL [place] # (Auto) 800 (0-900) /uL Eos # (Auto) 0 (0-450) /uL Baso # (Auto) 0 (0-100) /uL D-Dimer (<500) ng/ml ABG pH (7.35-7.45) ABG pCO2 (35-45) mmHg ABG pO2 (80-100) mmHg ABG HCO3 (22-26) mmol/L ABG Total CO2 (21-31) mmol/L ABG O2 Saturation (95-100) % ABG Base Excess (-2-2) mmol/L FiO2 Sodium 139 (137-145) mmol/L Potassium 4.4 (3.4-5.1) mmol/L Chloride 99 (98-107) mmol/L Carbon Dioxide 30 (22-32) mmol/L BUN 22 H (7-17) mg/dL Creatinine 0.61 (0.52-1.04) mg/dL Estimated GFR > 60 (>60) mL/min BUN/Creatinine Ratio 36.1 H (6-22) Glucose 147 H (80-110) mg/dL Lactate 2.0 (0.7-2.1) mmol/L Calcium 9.2 (8.4-10.2) mg/dL Magnesium 1.9 (1.6-2.3) mg/dL Total Bilirubin 0.2 (0.2-1.3) mg/dL AST 19 (14-36) IU/L ALT 15 (<35) IU/L Alkaline Phosphatase 72 (38-126) U/L Total Creatine Kinase 47 (30-135) U/L CK-MB (CK-2) TNP CK-MB (CK-2) Rel Index TNP Troponin I < 0.012 (0.01-0.034) ng/mL NT-Pro-B Natriuret Pep 196 (<450) pg/mL Total Protein 7.5 (6.3-8.2) g/dL Albumin 4.2 (3.5-5.0) g/dL Globulin 3.3 (1.7-4.1) g/dL Albumin/Globulin Ratio 1.3 (1.0-2.8) Urine RBC (0-5/HPF) Urine WBC (0-5/HPF) Ur Squamous Epith Cells (0-5/HPF) Urine Bacteria (None) Ur Culture Indicated? Micro UA Comment SARS-CoV-2 (PCR) (Negative) 01/14/22 01/14/22 01/14/22 Range/Units 23:34 23:40 23:49 WBC (4.5-11.0) X10^3/uL RBC (4.0-5.2) X10^6/uL Hgb (12.0-16.0) g/dL Hct (36-46) % MCV (80-100) fL MCH (26-34) PG MCHC (30-36) % RDW (11.6-14.8) % Plt Count (150-400) X10^3/uL Neut % (Auto) (50-75) % Lymph % (Auto) (25-40) % [place] % (Auto) (3-14) % Eos % (Auto) (2-4) % Baso % (Auto) (0-2) % Neut # (Auto) (5653-2235) /uL Lymph # (Auto) (7627-9675) /uL [place] # (Auto) (0-900) /uL Eos # (Auto) (0-450) /uL Baso # (Auto) (0-100) /uL D-Dimer 617 H (<500) ng/ml ABG pH 7.42 (7.35-7.45) ABG pCO2 47.2 H (35-45) mmHg ABG pO2 92 (80-100) mmHg ABG HCO3 30 H (22-26) mmol/L ABG Total CO2 32 H (21-31) mmol/L ABG O2 Saturation 97 (95-100) % ABG Base Excess 6.0 H (-2-2) mmol/L FiO2 28 Sodium (137-145) mmol/L Potassium (3.4-5.1) mmol/L Chloride (98-107) mmol/L Carbon Dioxide (22-32) mmol/L BUN (7-17) mg/dL Creatinine (0.52-1.04) mg/dL Estimated GFR (>60) mL/min BUN/Creatinine Ratio (6-22) Glucose (80-110) mg/dL Lactate (0.7-2.1) mmol/L Calcium (8.4-10.2) mg/dL Magnesium (1.6-2.3) mg/dL Total Bilirubin (0.2-1.3) mg/dL AST (14-36) IU/L ALT (<35) IU/L Alkaline Phosphatase (38-126) U/L Total Creatine Kinase (30-135) U/L CK-MB (CK-2) CK-MB (CK-2) Rel Index Troponin I (0.01-0.034) ng/mL NT-Pro-B Natriuret Pep (<450) pg/mL Total Protein (6.3-8.2) g/dL Albumin (3.5-5.0) g/dL Globulin (1.7-4.1) g/dL Albumin/Globulin Ratio (1.0-2.8) Urine RBC (0-5/HPF) Urine WBC (0-5/HPF) Ur Squamous Epith Cells (0-5/HPF) Urine Bacteria (None) Ur Culture Indicated? Micro UA Comment SARS-CoV-2 (PCR) Negative (Negative) 01/15/22 Range/Units 00:33 WBC (4.5-11.0) X10^3/uL RBC (4.0-5.2) X10^6/uL Hgb (12.0-16.0) g/dL Hct (36-46) % MCV (80-100) fL MCH (26-34) PG MCHC (30-36) % RDW (11.6-14.8) % Plt Count (150-400) X10^3/uL Neut % (Auto) (50-75) % Lymph % (Auto) (25-40) % [place] % (Auto) (3-14) % Eos % (Auto) (2-4) % Baso % (Auto) (0-2) % Neut # (Auto) (0563-5444) /uL Lymph # (Auto) (2073-0952) /uL [place] # (Auto) (0-900) /uL Eos # (Auto) (0-450) /uL Baso # (Auto) (0-100) /uL D-Dimer (<500) ng/ml ABG pH (7.35-7.45) ABG pCO2 (35-45) mmHg ABG pO2 (80-100) mmHg ABG HCO3 (22-26) mmol/L ABG Total CO2 (21-31) mmol/L ABG O2 Saturation (95-100) % ABG Base Excess (-2-2) mmol/L FiO2 Sodium (137-145) mmol/L Potassium (3.4-5.1) mmol/L Chloride (98-107) mmol/L Carbon Dioxide (22-32) mmol/L BUN (7-17) mg/dL Creatinine (0.52-1.04) mg/dL Estimated GFR (>60) mL/min BUN/Creatinine Ratio (6-22) Glucose (80-110) mg/dL Lactate (0.7-2.1) mmol/L Calcium (8.4-10.2) mg/dL Magnesium (1.6-2.3) mg/dL Total Bilirubin (0.2-1.3) mg/dL AST (14-36) IU/L ALT (<35) IU/L Alkaline Phosphatase (38-126) U/L Total Creatine Kinase (30-135) U/L CK-MB (CK-2) CK-MB (CK-2) Rel Index Troponin I (0.01-0.034) ng/mL NT-Pro-B Natriuret Pep (<450) pg/mL Total Protein (6.3-8.2) g/dL Albumin (3.5-5.0) g/dL Globulin (1.7-4.1) g/dL Albumin/Globulin Ratio (1.0-2.8) Urine RBC None seen (0-5/HPF) Urine WBC 10-30/hpf H (0-5/HPF) Ur Squamous Epith Cells 1-5 /hpf (0-5/HPF) Urine Bacteria Occasional (0-1) (None) Ur Culture Indicated? Specimen cultured Micro UA Comment * SARS-CoV-2 (PCR) (Negative) Urine Dip Bedside Urine Glucose Negative Bedside Urine Bilirubin - Negative Bedside Urine Ketone - Negative Urine Specific [place] 1.015 Bedside Urine Occult Blood - Negative Bedside Urine pH 6.0 Bedside Urine Protein + 30 Bedside Urine Urobilinogen - Negative Bedside Urine Nitrite - Negative Bedside Urine Leukocytes ++ 125 Esterase Imaging Data Chest x-ray: Radiologist Impression: [place] [address] XRay Report Signed Patient: Tari Olson MR#: [id number] : 1940 Acct:[id number] Age/Sex: 81 / F Date of Service: 01/14/22 Loc: ED Accession Number: [id number] ?? Procedure: XR chest 1V Ordering Provider: Jv Wagner D.O. PROCEDURE:? XR CHEST 1V ? INDICATIONS:? fall, trauma, preop ? TECHNIQUE:? One view of the chest was acquired.? ? COMPARISON:? None. ? FINDINGS:? ? Surgical changes and devices:? None.? ? Lungs and pleura:? Lungs are clear.? No pleural effusions or pneumothorax.? ? Mediastinum:? Mediastinal contours appear normal.? Heart size is normal.? ? Bones and chest wall:? There is deformity of the proximal humerus consistent with sequelae of a prior fracture of the humeral head and neck.? No suspicious bony lesions.? Overlying soft tissues appear unremarkable.? ? IMPRESSION:? ? 1.? No acute cardiopulmonary disease. ? ? ? Dictated by: Octaviano Brunson M.D. on 01/15/2022 at 1:15 ? ? Approved by: Octaviano Brunson M.D. on 01/15/2022 at 1:16 ? Discharge Plan Departure Patient Disposition: Admitted as Observation Clinical Impression: Pneumonia, Acute hypoxemic respiratory failure Admit Date/Time: 01/15/22 01:48 Admit Provider: Cherie Agustin
[2022-01-15 01:00] LABS: D Dimer 617 ng/ml (<500)
[2022-01-15 01:08] LABS: Bacteria Urine Occasional (0-1); Culture Indicated Urine Specimen Cultured; RBC Urine None Seen (0-5/HPF); Squamous Epithelial Cell Urine 1-5 /HPF (0-5/HPF); WBC Urine 10-30/HPF (0-5/HPF)
[2022-01-15 01:58] VITALS: BP 130/52; PULSE 66; RESP 19; TEMP 36.9; O2SAT 99
[2022-01-15 02:03] VITALS: BMI 16.8
[2022-01-15] MEDS: cefTRIAXone 1,000 MG in SODIUM CHLORIDE 0.9% 100 ML 200 MG IV (02:15)
[2022-01-15 02:24] VITALS: BP 108/56; PULSE 66; RESP 20; O2SAT 98
[2022-01-15 02:51] LABS: C-Reactive Protein Quant 3.9 mg/dL (<1.0)
[2022-01-15 03:05] LABS: Procalcitonin 0.08 ng/mL (<0.5)
[2022-01-15] MEDS: SODIUM CHLORIDE 0.9% 1,000 ML 60 ML IV (03:31)
--- NOTE | 2022-01-15 03:39 | PM.HP.1 ---
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 The patient is historically a very poor historian and has short-term memory loss due to neurosurgery. Family at bedside in ED stated that her current level of confusion is her neurologic baseline.? Patient resides at an elderly living home [facility], EMS was activated when the patient was too weak to ambulate to the bathroom, required a 2-person assist.? She normally ambulates independently with the use of a walker, without assistance.? EMS found her to be in respiratory distress with 32ihy48%on rm air at rest on their arrival, she was put on 4 LN/C-02 sat increased to 92%.? She has had no recent hospitalizations, history of blood clot,denies fever, body aches, chills, chest pain, abd pain, nausea, vomiting or diarrhea, recent exposure to illness,illness, injury, or trauma.? She is a DNR with a focus on comfort care, POA at the bedside in ED agreed with treatment using antibiotics if indicated. Unable to obtain patient's family history due to patient being a poor historian and memory loss. Patient is deaf in the Left ear & Blind in the Left eye, patient notes difficulty urinating, she feels bladder pressure and urgency but feels she is unable to empty her bladder, denies dysuria, hematuria, and frequency. Upon admit temp 98.6?, BP 113/58, HR 87, R 18, O2 saturation 92% on 4 L nasal cannula at rest. Patient is sleeping with eye mask on, in no distress upon admit exam. Patient has no white count, only slight neutrophil left shift 8400, chemistries are predominantly unremarkable with the exception of a blood sugar 147, D-dimer 617 age corrected is negative, lactate, troponin, BNP all normal, chest x-ray is negative for any acute cardiopulmonary process. ABGs normal with the exception of pCO2 47.2, HC03 30, base excess 6. Urine positive for WBC, sent for culture-full u/a dip not available from ED. Patient admitted for acute hypercapnic respiratory failure with hypoxia. 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 Hearing loss History of brain tumor Malnutrition Surgical History (Updated 01/15/22 @ 03:54 by ARTUR Jimenes) History of brain surgery Family & Social History Family history unavailable: Yes (Unable to obtain due to patients Memory loss/poor [id number] to Neurosurg) Social History: household members caregiver,other Prior Living Arrangements Adult Family Home [facility] Safety & Behavioral: Feels Safe in Current Yes Environment Been Physically Hurt or No Threatened By a Person Tobacco & Substance use: Tobacco type cigarettes Smoking Status Former smoker alcohol intake current alcohol intake frequency 0-2 drinks per day Substance Use Type does not use Meds Home Medications and Allergies Home Medications Medication Instructions Recorded Confirmed Type sennosides 8.6 mg capsule (senna) 8.6 mg PO BID PRN constipation #10 09/08/19 Rx caps acetaminophen 500 mg tablet 1,000 mg PO TID 01/15/22 01/15/22 History aspirin 81 mg tablet,delayed 81 mg PO DAILY 01/15/22 01/15/22 History release quetiapine 25 mg tablet 25 mg PO BID 01/15/22 01/15/22 History Allergies Allergy/AdvReac Type Severity Reaction Status Date / Time morphine Allergy Verified 09/08/19 14:22 Penicillins Allergy Verified 09/08/19 14:22 Review of Systems Review of Systems Narrative: All 12 point systems reviewed with the patient and are negative except otherwise documented.-accuracy of ROS questionable due to patient being a poor historian & memory loss. Exam Vital Signs (past 8 hours): - 01/14/22 23:35 01/15/22 02:24 01/15/22 01:58 Temperature 98.6 F Pulse Rate 87 66 Respiratory Rate 18 20 Blood Pressure 113/58 L 108/56 L Pulse Oximetry 89 L 98 99 Oxygen Delivery Method Room Air Nasal Cannula Nasal Cannula Oxygen Flow Rate 2 2 01/15/22 01:58 Temperature 98.5 F Pulse Rate 66 Respiratory Rate 19 Blood Pressure 130/52 L Pulse Oximetry 99 Oxygen Delivery Method Oxygen Flow Rate 2 Oxygen Delivery Method Nasal Cannula Oxygen Flow Rate 2 Narrative Exam Narrative: GENERAL: [81] year old patient appears stated age. thin, frail, pleasantly confused, GCS 14 HEAD: Left side of face, mild chronic droop from prior neurosurgeries. EYES: No scleral icterus. No injection or drainage.? Left eye ptosis, blindness, consequence of prior neurosurgery ENT: Nose without bleeding, purulent drainage. Throat without erythema, tonsillar hypertrophy or exudate. Airway patent. Deafness in Left Ear. NECK: Trachea midline. Non tender CARDIOVASCULAR: Regular rate and rhythm without murmurs, gallops, or rubs. RESPIRATORY:? Lung sounds are clear, decreased, shallow, poor air exchange, no noted nasal flaring, use of accessory muscles, tachypnea or labored breathing. Patient is no longer coughing upon exam, what secretions are not audible at this time. GASTROINTESTINAL: Abdomen soft, non-tender, nondistended, though pt complains of feeling like her bladder is full and she is unable to urinate, with palpation. EXTREMITIES: No edema or joint tenderness. BACK: Nontender without deformity or crepitance. No flank tenderness. NEURO:? Cranial nerves 2-12 grossly intact SKIN: dry, pale, thin appearing, No rash or erythema of visible areas Objective Labs Result Diagrams: 01/14/22 23:34 01/14/22 23:34 Labs: Laboratory Results - last 24 hr 01/14/22 01/14/22 01/14/22 23:34 23:34 23:34 WBC 10.0 RBC 3.79 L Hgb 12.1 Hct 35.9 L MCV 94.9 MCH 32.0 MCHC 33.7 RDW 14.1 Plt Count 233 Neut % (Auto) 84.1 H Lymph % (Auto) 7.1 L [place] % (Auto) 8.3 Eos % (Auto) 0.3 L Baso % (Auto) 0.2 Neut # (Auto) 8400 H Lymph # (Auto) 700 L [place] # (Auto) 800 Eos # (Auto) 0 Baso # (Auto) 0 D-Dimer ABG pH ABG pCO2 ABG pO2 ABG HCO3 ABG Total CO2 ABG O2 Saturation ABG Base Excess FiO2 Sodium 139 Potassium 4.4 Chloride 99 Carbon Dioxide 30 BUN 22 H Creatinine 0.61 Estimated GFR > 60 BUN/Creatinine Ratio 36.1 H Glucose 147 H Lactate 2.0 Calcium 9.2 Magnesium 1.9 Total Bilirubin 0.2 AST 19 ALT 15 Alkaline Phosphatase 72 Total Creatine Kinase 47 CK-MB (CK-2) TNP CK-MB (CK-2) Rel Index TNP Troponin I < 0.012 C-Reactive Protein NT-Pro-B Natriuret Pep 196 Total Protein 7.5 Albumin 4.2 Globulin 3.3 Albumin/Globulin Ratio 1.3 Procalcitonin Urine RBC Urine WBC Ur Squamous Epith Cells Urine Bacteria Ur Culture Indicated? Micro UA Comment SARS-CoV-2 (PCR) 01/14/22 01/14/22 01/14/22 23:34 23:34 23:34 WBC RBC Hgb Hct MCV MCH MCHC RDW Plt Count Neut % (Auto) Lymph % (Auto) [place] % (Auto) Eos % (Auto) Baso % (Auto) Neut # (Auto) Lymph # (Auto) [place] # (Auto) Eos # (Auto) Baso # (Auto) D-Dimer 617 H ABG pH ABG pCO2 ABG pO2 ABG HCO3 ABG Total CO2 ABG O2 Saturation ABG Base Excess FiO2 Sodium Potassium Chloride Carbon Dioxide BUN Creatinine Estimated GFR BUN/Creatinine Ratio Glucose Lactate Calcium Magnesium Total Bilirubin AST ALT Alkaline Phosphatase Total Creatine Kinase CK-MB (CK-2) CK-MB (CK-2) Rel Index Troponin I C-Reactive Protein 3.9 H NT-Pro-B Natriuret Pep Total Protein Albumin Globulin Albumin/Globulin Ratio Procalcitonin 0.08 Urine RBC Urine WBC Ur Squamous Epith Cells Urine Bacteria Ur Culture Indicated? Micro UA Comment SARS-CoV-2 (PCR) 01/14/22 01/14/22 01/15/22 23:40 23:49 00:33 WBC RBC Hgb Hct MCV MCH MCHC RDW Plt Count Neut % (Auto) Lymph % (Auto) [place] % (Auto) Eos % (Auto) Baso % (Auto) Neut # (Auto) Lymph # (Auto) [place] # (Auto) Eos # (Auto) Baso # (Auto) D-Dimer ABG pH 7.42 ABG pCO2 47.2 H ABG pO2 92 ABG HCO3 30 H ABG Total CO2 32 H ABG O2 Saturation 97 ABG Base Excess 6.0 H FiO2 28 Sodium Potassium Chloride Carbon Dioxide BUN Creatinine Estimated GFR BUN/Creatinine Ratio Glucose Lactate Calcium Magnesium Total Bilirubin AST ALT Alkaline Phosphatase Total Creatine Kinase CK-MB (CK-2) CK-MB (CK-2) Rel Index Troponin I C-Reactive Protein NT-Pro-B Natriuret Pep Total Protein Albumin Globulin Albumin/Globulin Ratio Procalcitonin Urine RBC None seen Urine WBC 10-30/hpf H Ur Squamous Epith Cells 1-5 /hpf Urine Bacteria Occasional (0-1) Ur Culture Indicated? 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 Patient resides at a elderly living facility, is not on Home O2 and independently ambulates with walker. Patient is admitted for acute hypercapnic respiratory failure with hypoxia due to unknown etiology. The patient required 4 L nasal cannula for an O2 saturation of 92% at rest. 1. Acute hypercapnic respiratory failure with hypoxia, acute, with weakness, present on admission-improving now on 2L NC/02 sat 93%. -etiology unknown at this time suspect viral infection, initial inflammatory markers, ABG's, and chest x-ray are negative. Patient is not on Home 02, and has no known respiratory history. -Possible UTI? Urinary retention- Bladder scan PRN to check for urinary retention. Incomplete u/a from ED- culture pending-Rocephin broad spectrum UTI Coverage. -ED initiated Rocephin and azithromycin (Monitor for QT prolongation), will temporary continue until cultures are resulted or patients condition improves. -WBC-negative, neut #-[id number], CMP-negative, D-dimer 617 age corrected is negative, lactate, troponin, BNP -negative, COVID- negative. -ABGs normal with the exception of pCO2 47.2, HC03 30, base excess 6. -ordered respiratory panel, sputum cultures, blood cultures, procalcitonin, CRP -Gentle rehydration NS @60cc/hr- monitor for fluid overload/pulm edema -95wwl40%on rm air at rest, 4 LN/C-02 sat increased to 92%. -DuoNebs Q 4-6 hours as needed for cough or shortness of breath -prednisone 40 mg p.o. daily x5 days -incentive spirometry -PT/OT Consult 2. History of brain tumor, with resection x2, resulting in memory impairment, chronic, present on admission-stable -Unable to obtain patient's family history due to patient being a poor historian and memory loss.(Baseline for Patient-as reported by daughter at bedside in ED) 3. Severe Calorie malnutrition, acute on chronic, present on admission -as evidence by BMI of 16.8 -patient's calorie malnutrition will impact severity of illness and recovery, and increase her risk morbidity and mortality -Dietary Consult ordered to assess and assist with nutritional counseling, to support health & healing Code status:DNR/DNI-Comfort Care Focused- fluids & antibiotics appropriate for tx Surrogate decision maker: ANKUR Mccord Daughter COVID PCR:Negative DVT/VTE prophylaxis: Lovenox and SCDs Disposition: Patient admitted for observation, expected length of stay less than 2 midnights, determine cause of acute respiratory failure. I have utilized all available immediate resources to obtain, update, or review the patient's current medications. I confirmed that the patient's advanced care plan is present, Code status is documented and/or surrogate decision maker is listed in the patient's medical record. Time Spent With Patient Critical Care time: I spent a total of [] minutes of critical care time on this patient's care today; this time is exclusive of procedural time. Scores GCS Linda coma scale eye opening: Spontaneous [place] coma scale verbal response: Confused Linda coma scale motor response: Obey commands [place] coma scale total score: 14 Quality VTE Deep Vein Thrombosis/Pulmonary Embolism Present on Admission: No
[2022-01-15] MEDS: AZITHROMYCIN 500 MG in DEXTROSE 5% IN WATER 250 ML 250 MG IV (05:35)
[2022-01-15 05:56] LABS: Adenovirus Not Detected (Not Detect); B. parapertussis Not Detected (Not Detecte); Bordetella pertussis Not Detected (Not Detecte); Chlamydophila pneumoniae Not Detected (Not Detect); Coronavirus 229E Not Detected (Not Detect); Coronavirus HKU1 Not Detected (Not Detect); Coronavirus NL 63 Not Detected (Not Detect); Coronavirus OC43 Not Detected (Not Detect); Human Metapneumovirus Not Detected (Not Detect); Human Rhinovirus/Enterovirus Detected (Not Detect); Influenza A Not Detected (Not Detect); Influenza B Not Detected (Not Detect); Mycoplasma pneumoniae Not Detected (Not Detect); Parainfluenza Virus 1 Not Detected (Not Detect); Parainfluenza Virus 2 Not Detected (Not Detect); Parainfluenza Virus 3 Not Detected (Not Detect); Parainfluenza Virus 4 Not Detected (Not Detect); Respiratory Syncytial Virus Not Detected (Not Detect); SARS- CoV-2 Not Detected (Not Detecte)
[2022-01-15 05:58] VITALS: O2SAT 94
[2022-01-15 06:00] VITALS: BP 119/53; PULSE 65; RESP 19; TEMP 36.2; O2SAT 94
[2022-01-15 06:23] LABS: Add Manual Diff / Slide Review NO; Basophils Absolute Auto 0 /uL (0-100); Basophils Percent Auto 0.3 % (0-2); Eosinophils Absolute Auto 0 /uL (0-450); Eosinophils Percent Auto 0.1 % (2-4); Hematocrit 31.5 % (36-46); Hemoglobin 10.7 g/dL (12.0-16.0); Lymphocytes Absolute Auto 900 /uL (1100-4500); Lymphocytes Percent Auto 9.9 % (25-40); Mean Corpuscular HGB Conc 33.8 % (30-36); Mean Corpuscular Volume 94.6 fL (80-100); Monocytes Absolute Auto 600 /uL (0-900); Monocytes Percent Auto 7.1 % (3-14); Neutrophils Absolute Auto 7400 /uL (1500-7000); Neutrophils Percent Auto 82.6 % (50-75); Platelet Count 198 X10^3/uL (150-400); Red Blood Cell Count 3.33 X10^6/uL (4.0-5.2); Red Cell Distribution Width 14.2 % (11.6-14.8)
[2022-01-15 06:32] LABS: BUN Creatinine Ratio 40.4 (6-22); Blood Urea Nitrogen 19 mg/dL (7-17); Calcium 8.1 mg/dL (8.4-10.2); Carbon Dioxide 33 mmol/L (22-32); Chloride 101 mmol/L (98-107); Estimated Glomerular Filt Rate > 60 mL/min (>60); Glucose 122 mg/dL (80-110); HEMOLYSIS < 15 (0-50); Potassium 3.8 mmol/L (3.4-5.1); Sodium 139 mmol/L (137-145)
[2022-01-15 07:44] VITALS: BP 135/45; PULSE 61; RESP 16; TEMP 36.4; O2SAT 96
[2022-01-15] MEDS: ENOXAPARIN 40 MG/0.4 ML SYRINGE SUBCUT (09:42)
[2022-01-15] MEDS: predniSONE 20 MG TABLET 40 MG PO (09:42)
--- NOTE | 2022-01-15 10:49 | CM.DANOTE ---
Addendum entered by Shreya Sánchez R.N. 01/15/22 15:28: DCP Cont: Pt is deemed medically stable for discharge. [facility] was notified and informed of standby assist per medical staff assistant. [facility] hesitant to take pt back today as they think it is too soon. ELODIA Muniz, contacted and per Flavio, BHUMIKA wants her to come up to the hospital after work to assess her to see if pt is back to baseline. If Flavio is comfortable with sending her back, [facility] will take her back tonight. medical staff assistant is aware of plan. Pt preferred pharmacy is [facility] in [place]. P: Pt to discharge back to [facility] via daughter POV. ADJ Original Note: DCP Assessment: Payor: Medicare & AARP PCP: Unknown Pt is a 81 y.o. F who presented to the ER via ambulance from her adult family home following weakness, SOB, and cough over the day. EMS was called by her [facility] due to not being able to get herself to the bathroom with the use of her walker like she normally can. Pt was found to be in respiratory distress upon EMS arrival. Rhea, daughter, is pt DPOA. Pt admitted to the floor for further management and evaluation of her symptoms. DCP contacted [facility] to confirm place of residence and discuss pt baseline level of functioning. Phylicia at [facility] states that pt is normally independent at baseline and can walk herself around with the assistance of her walker to other areas of the home such as the dining dugan. Phylicia states that she was concerned when she found that the pt could not get herself out of bed. Phylicia described the patient as paralyzed and could not move. Phylicia states that when patient is ready for discharge, she would need to be contacted to make sure it is a safe plan to bring her back to the [facility]. DCP verbalized understanding. DCP contacted ELODIA Wilkerson, to discuss further information regarding pt. 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 She states that the pt is not normally confused at baseline. She also states that pt likes to know what day and time it is regularly. Rhea states that her hope would be to get her back to [facility]. DCP verbalized that PT/OT will be working with pt and depending on what they evaluate, DCP prepared her for SNF if needed. Rhea understood. Rhea very active in pt care and discharge. DCP to contact Rhea with any new updates about her discharge that might arise. Rhea thankful for call and DCP contact information was provided to her. P: Discharge needs unclear at this time. Goal would be to get pt back to [facility] following discharge. DCP to continue to follow. Shreya Sánchez RN/UNIQUEP Discharge Planning/Care Management CM Discharge Assessment Start: 01/15/22 09:02 Freq: Status: Active Protocol: Document 01/15/22 10:47 JENISE (Rec: 01/15/22 10:49 JENISE [id number]) Discharge Planning Assessment Assigned After School Program Assistant Shreya Sánchez RN/UNIQUEP DPOA/Assigned Designee Name Flavio MccordVstjz-[id number]-[id number] Contact Information [phone] Advance Directives? Yes Advance Directives on File Yes History Provided By Family Member Prior Living Arrangements Adult Family Home Comment [facility] Household Members caregiver,other Type of transporation used prior to Relies on Others admit Willing to Return to Facility? Yes: [facility] Adult Family Home Independent with ADL's Yes Caregiver for Another No DME Already Rented / Owned FWW / Walker Discharge Plan Adult Family Home Referrals Initiated None needed Additional Comment At this time. R/O SNF Whiteboard Updated in Patient Room with No name and ext. # of After School Program Assistant Comment Unable to enter room due to droplet precautions Review Status In Process Please Provide Date Initial DC 01/15/22 Assessment Was Performed Next Review Type Continued Stay Review
--- NOTE | 2022-01-15 11:56 | PT.IIE ---
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 Hearing loss History of brain tumor Malnutrition Physical Therapy Inpatient Evaluation/Re-Eval M1 PT/OT-IP Prior Functional Status Start: 01/15/22 14:28 Freq: NEEDED Status: Active Protocol: Document 01/15/22 11:56 AB (Rec: 01/15/22 14:50 [facility] Medical Review Prior Functional Status Medical History Reviewed Yes Communication with confusion Mobility and Gait pt with confusion and info obtained may not be accurate: pt stated that she is modified independent with all mobilities and ambulation without AD per EMR: pt uses a FWW for ambulation mod I Prior Functional Level (Other details) Per showcase trimmer: pt lives at [facility] Adult family home Social History Household Members caregiver,other Living Arrangements Adult Family Home Number of Floors (Floors) One Floor Home Environment Standard Height Toilet,Walk in Shower Home Equipment Shower Seat with Backrest,Hand Held Shower,Grab Bars In Shower M2 PT-IP Current Condition Start: 01/15/22 14:28 Freq: NEEDED Status: Active Protocol: Document 01/15/22 11:56 AB (Rec: 01/15/22 14:50 [facility] Physical Therapy Current Condition Current Condition Evaluation Date 01/15/22 Treatment Diagnosis repiratory failure; difficulty in walking Onset Date 01/15/22 M3 PT-IP Subjective Start: 01/15/22 14:28 Freq: NEEDED Status: Active Protocol: Document 01/15/22 11:56 AB (Rec: 01/15/22 14:50 [facility] Subjective Physical Therapy Visit Type Type Initial Evaluation Visit Start Time 11:56 Visit Stop Time 12:30 Total Visit Minutes 34 Number of SMOOTH STUCCO RESURFACER Visits 0 Physical Therapy Visit Comments Patient Comments requesting to use the toilet M4 PT-IP Mobility and Gait Start: 01/15/22 14:28 Freq: NEEDED Status: Active Protocol: Document 01/15/22 11:56 AB (Rec: 01/15/22 14:50 [facility] PT-Bed Mobility Assessment Supine to Sit Supine to Sit Standby Assistance PT-Transfer Assessment Sit to and From Stand Sit to and from Stand Maximum Assistance,1 Person Assistance,Use of Upper Extremities Equipment Transfer Assistive Device Gait Belt,Front Wheeled Walker Orthotic/Prosthetic Devices or Brace: No Transfers Transfer Destination Toilet Transfer Technique ambulated Transfer Ability Level of Assist Maximum Assistance,1 Person Assistance Comments Mobility Comments pt requesting to use the toilet. completed supine to sit SBA. able to sit on EOB SBA. pt can be impulsive. completed sit to stand max A and ambulated to the toilet using FWW max A and max cues. presents with unsteady gait with LLE in ER and with dragging circumduction on LLE. pt also tend to push FWW too far forward and needs assist to stabilize. completed toileting but needs assist with hygiene care and brief management. completed sit to stand from the toilet max A using grab bar. pt ambulated to the chair using FWW max A and max cues. positioned on the chair. call light and table placed within reach. Gait Assessment Gait Gait Assistance Required: Maximum Assistance Distance (Feet) 10 Able to Maintain Weight Bearing Status Yes During Gait Assistive Devices Assistive Device Gait Belt,Front Wheeled Walker Orthotic/Prosthetic Devices or Brace: No Gait Deviations General Gait Pattern Antalgic,Ataxic,Decreased Stride Length,Decreased Feet Clearance,Step-to Gait Factors Limiting Gait Function Factors Limiting Gait Function Decreased Activity Tolerance, Decreased Strength,Difficulty Following Directions,Poor Balance,Poor Safety Awareness PT-Balance Assessment Sitting Balance and Reactions Static Sitting Balance Ability Good Dynamic Sitting Balance Ability Good Standing Balance and Reactions Static Standing Balance Ability Poor Dynamic Standing Balance Ability Poor Device Used FWW M5 PT-IP Objective Assessments Start: 01/15/22 14:28 Freq: NEEDED Status: Active Protocol: Document 01/15/22 11:56 AB (Rec: 01/15/22 14:50 AB [id number]) Orientation Orientation/Cognition Level of Alertness Confusional State Orientation Name Safety Awareness Decreased Safety Awareness Memory Description Short Term Impaired,Tappet Adjuster Impaired Gross Range of Motion Lower Extremity ROM Assessment Within Functional Limits Strength Lower Extremity Strength Assessment Left Impaired Hip 3/5 Knee 3+/5 Ankle 3-/5 Muscle Tone Muscle Tone WNL Yes M6 PT-IP Treatment Start: 01/15/22 14:28 Freq: NEEDED Status: Active Protocol: Document 01/15/22 11:56 AB (Rec: 01/15/22 14:50 [id number]) Physical Therapy Treatment Education Education Provided Safety M7 PT-IP Assessment and Plan Start: 01/15/22 14:28 Freq: NEEDED Status: Active Protocol: Document 01/15/22 11:56 (Rec: 01/15/22 14:50 [id number]) PT Summary Assessment and Plan Potential Rehabilitation Potential Fair Status of Condition at Evaluation Evolving Summary Impairments Pain,ROM,Strength,Balance, Coordination,Sensation,Tone, Cognition,Bed Mobility, Transfers,Gait,Activity Tolerance Assessment Summary pt requiring max A with mobility using FWW. pt lives at [facility] and if [facility] is going to be able to provide necessary assistance to pt, pt may go back to [facility] and will need HHPT . will continue to assess progress. Goals Bed Mobility Goal Standby Assistance Transfer Goal Standby Assistance,Front Wheeled Walker Gait Goal Standby Assistance,Front Wheel Walker Gait Distance 50 Days to Meet Goals 10 Frequency of Treatment Frequency Of Treatment Once a Day Treatment Plan Physical Therapy Treatment Plan Bed Mobility Training,Transfer Training,Gait Training, Therapeutic Exercise,Balance Retraining,Discharge Planning, Neuromuscular Re-ed, Coordination Retraining Precautions Other Precautions falls Recommendations To Nursing Amount of Assist Needed 1 Person Assist Discharge Recommendations PT Discharge Recommendations Home with 11/11 Assist Available,Home Health Transportation Needs at Discharge Wheelchair/Cabulance
--- NOTE | 2022-01-15 14:16 | P.DS_ITS ---
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 The patient is historically a very poor historian and has short-term memory loss due to neurosurgery. Family at bedside in ED stated that her current level of confusion is her neurologic baseline.? Patient resides at an elderly living [facility], EMS was activated when the patient was too weak to ambulate to the bathroom, required a 2-person assist.? She normally ambulates independently with the use of a walker, without assistance.? EMS found her to be in respiratory distress with [id number] rm air at rest on their arrival, she was put on 4 LN/C- 02 sat increased to 92%.? She has had no recent hospitalizations, history of blood clot,denies fever, body aches, chills, chest pain, abd pain, nausea, vomiting or diarrhea, recent exposure to illness,illness, injury, or trauma.? She is a DNR with a focus on comfort care, POA at the bedside in ED agreed with treatment using antibiotics if indicated. Unable to obtain patient's family history due to patient being a poor historian and memory loss. Patient is deaf in the Left ear & Blind in the Left eye, patient notes difficulty urinating, she feels bladder pressure and urgency but feels she is unable to empty her bladder, denies dysuria, hematuria, and frequency. Upon admit temp 98.6?, BP 113/58, HR 87, R 18, O2 saturation 92% on 4 L nasal cannula at rest. Patient is sleeping with eye mask on, in no distress upon admit exam. Patient has no white count, only slight neutrophil left shift 8400, chemistries are predominantly unremarkable with the exception of a blood sugar 147, D-dimer 617 age corrected is negative, lactate, troponin, BNP all normal, chest x-ray is negative for any acute cardiopulmonary process. ABGs normal with the exception of pCO2 47.2, HC03 30, base excess 6. Urine positive for WBC, sent for culture-full u/a dip not available from ED. Patient admitted for acute hypercapnic respiratory failure with hypoxia. Discharge Providers Provider Date of admission: 01/15/22 01:48 Discharge Date: 01/15/22 Consults: 01/15/22 02:03 Consult to Dietitian, Adult Routine Comment: Reason For Exam: malnutrition BMI18.5 Consult to Occupational Therapy Evaluate & Treat Comment: weakness Physician Instructions: Evaluate and treat Consult to Physical Therapy Evaluate & Treat Comment: Physician Instructions: Evaluate and Treat Discharge provider: Raudel Dean DO Summary Hospital Course Discharge Diagnosis: 1. Acute hypercapnic respiratory failure with hypoxia, acute, with weakness, present on admission-resolved 2. 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 Patient was admitted for acute hypercapnic respiratory failure with hypoxia. There was no obvious pneumonia or pulmonary vascular congestion on radiographic imaging. She was found to have rhinovirus on respiratory panel which was likely the source of her presentation. Supportive care was provided. The following day, she had returned back to her baseline and was discharged back to her adult family home. Exam Vital Signs (past 8 hours): - 01/15/22 07:44 01/15/22 07:00 Temperature 97.6 F Pulse Rate 61 Respiratory Rate 16 Blood Pressure 135/45 L Pulse Oximetry 96 Oxygen Delivery Method Nasal Cannula Oxygen Flow Rate 2 Oxygen Delivery Method Nasal Cannula Oxygen Flow Rate 2 Narrative Exam Narrative: GENERAL: Pleasant Elderly female, frail, but no acute distress. Pulm: CTA b/l no wheezes rhonchi or rales CV: RRR no m/r/g Ext: No edema or joint effusions Objective Labs Result Diagrams: 01/15/22 06:01 01/15/22 06:01 Labs: Laboratory Results - last 24 hr 01/14/22 01/14/22 01/14/22 23:34 23:34 23:34 WBC 10.0 RBC 3.79 L Hgb 12.1 Hct 35.9 L MCV 94.9 MCH 32.0 MCHC 33.7 RDW 14.1 Plt Count 233 Neut % (Auto) 84.1 H Lymph % (Auto) 7.1 L [place] % (Auto) 8.3 Eos % (Auto) 0.3 L Baso % (Auto) 0.2 Neut # (Auto) 8400 H Lymph # (Auto) 700 L [place] # (Auto) 800 Eos # (Auto) 0 Baso # (Auto) 0 D-Dimer ABG pH ABG pCO2 ABG pO2 ABG HCO3 ABG Total CO2 ABG O2 Saturation ABG Base Excess FiO2 Sodium 139 Potassium 4.4 Chloride 99 Carbon Dioxide 30 BUN 22 H Creatinine 0.61 Estimated GFR > 60 BUN/Creatinine Ratio 36.1 H Glucose 147 H Lactate 2.0 Calcium 9.2 Magnesium 1.9 Total Bilirubin 0.2 AST 19 ALT 15 Alkaline Phosphatase 72 Total Creatine Kinase 47 CK-MB (CK-2) TNP CK-MB (CK-2) Rel Index TNP Troponin I < 0.012 C-Reactive Protein NT-Pro-B Natriuret Pep 196 Total Protein 7.5 Albumin 4.2 Globulin 3.3 Albumin/Globulin Ratio 1.3 Procalcitonin Urine RBC Urine WBC Ur Squamous Epith Cells Urine Bacteria Ur Culture Indicated? Micro UA Comment Chlamy pneumoniae PCR Adenovirus (PCR) B. pertussis DNA (PCR) B.parapertussis DNA PCR Coronavirus OC43 (PCR) Coronavirus HKU1 (PCR) Coronavirus 229E (PCR) SARS-CoV-2 (PCR) Coronavirus NL63 (PCR) Human Metapneumovir PCR Influenza Type A (PCR) Influenza Type B (PCR) M. pneumoniae (PCR) Parainfluenza 1 (PCR) Parainfluenza 2 (PCR) Parainfluenza 3 (PCR) Parainfluenza 4 (PCR) RSV (PCR) Entero/Rhino (PCR) 01/14/22 01/14/22 01/14/22 23:34 23:34 23:34 WBC RBC Hgb Hct MCV MCH MCHC RDW Plt Count Neut % (Auto) Lymph % (Auto) [place] % (Auto) Eos % (Auto) Baso % (Auto) Neut # (Auto) Lymph # (Auto) [place] # (Auto) Eos # (Auto) Baso # (Auto) D-Dimer 617 H ABG pH ABG pCO2 ABG pO2 ABG HCO3 ABG Total CO2 ABG O2 Saturation ABG Base Excess FiO2 Sodium Potassium Chloride Carbon Dioxide BUN Creatinine Estimated GFR BUN/Creatinine Ratio Glucose Lactate Calcium Magnesium Total Bilirubin AST ALT Alkaline Phosphatase Total Creatine Kinase CK-MB (CK-2) CK-MB (CK-2) Rel Index Troponin I C-Reactive Protein 3.9 H NT-Pro-B Natriuret Pep Total Protein Albumin Globulin Albumin/Globulin Ratio Procalcitonin 0.08 Urine RBC Urine WBC Ur Squamous Epith Cells Urine Bacteria Ur Culture Indicated? Micro UA Comment Chlamy pneumoniae PCR Adenovirus (PCR) B. pertussis DNA (PCR) B.parapertussis DNA PCR Coronavirus OC43 (PCR) Coronavirus HKU1 (PCR) Coronavirus 229E (PCR) SARS-CoV-2 (PCR) Coronavirus NL63 (PCR) Human Metapneumovir PCR Influenza Type A (PCR) Influenza Type B (PCR) M. pneumoniae (PCR) Parainfluenza 1 (PCR) Parainfluenza 2 (PCR) Parainfluenza 3 (PCR) Parainfluenza 4 (PCR) RSV (PCR) Entero/Rhino (PCR) 01/14/22 01/14/22 01/15/22 23:40 23:49 00:33 WBC RBC Hgb Hct MCV MCH MCHC RDW Plt Count Neut % (Auto) Lymph % (Auto) [place] % (Auto) Eos % (Auto) Baso % (Auto) Neut # (Auto) Lymph # (Auto) [place] # (Auto) Eos # (Auto) Baso # (Auto) D-Dimer ABG pH 7.42 ABG pCO2 47.2 H ABG pO2 92 ABG HCO3 30 H ABG Total CO2 32 H ABG O2 Saturation 97 ABG Base Excess 6.0 H FiO2 28 Sodium Potassium Chloride Carbon Dioxide BUN Creatinine Estimated GFR BUN/Creatinine Ratio Glucose Lactate Calcium Magnesium Total Bilirubin AST ALT Alkaline Phosphatase Total Creatine Kinase CK-MB (CK-2) CK-MB (CK-2) Rel Index Troponin I C-Reactive Protein NT-Pro-B Natriuret Pep Total Protein Albumin Globulin Albumin/Globulin Ratio Procalcitonin Urine RBC None seen Urine WBC 10-30/hpf H Ur Squamous Epith Cells 1-5 /hpf Urine Bacteria Occasional (0-1) Ur Culture Indicated? Specimen cultured Micro UA Comment * Chlamy pneumoniae PCR Adenovirus (PCR) B. pertussis DNA (PCR) B.parapertussis DNA PCR Coronavirus OC43 (PCR) Coronavirus HKU1 (PCR) Coronavirus 229E (PCR) SARS-CoV-2 (PCR) Negative Coronavirus NL63 (PCR) Human Metapneumovir PCR Influenza Type A (PCR) Influenza Type B (PCR) M. pneumoniae (PCR) Parainfluenza 1 (PCR) Parainfluenza 2 (PCR) Parainfluenza 3 (PCR) Parainfluenza 4 (PCR) RSV (PCR) Entero/Rhino (PCR) 01/15/22 01/15/22 01/15/22 03:50 06:01 06:01 WBC 9.0 RBC 3.33 L Hgb 10.7 L Hct 31.5 L MCV 94.6 MCH 32.0 MCHC 33.8 RDW 14.2 Plt Count 198 Neut % (Auto) 82.6 H Lymph % (Auto) 9.9 L [place] % (Auto) 7.1 Eos % (Auto) 0.1 L Baso % (Auto) 0.3 Neut # (Auto) 7400 H Lymph # (Auto) 900 L [place] # (Auto) 600 Eos # (Auto) 0 Baso # (Auto) 0 D-Dimer ABG pH ABG pCO2 ABG pO2 ABG HCO3 ABG Total CO2 ABG O2 Saturation ABG Base Excess FiO2 Sodium 139 Potassium 3.8 Chloride 101 Carbon Dioxide 33 H BUN 19 H Creatinine 0.47 L Estimated GFR > 60 BUN/Creatinine Ratio 40.4 H Glucose 122 H Lactate Calcium 8.1 L Magnesium Total Bilirubin AST ALT Alkaline Phosphatase Total Creatine Kinase CK-MB (CK-2) CK-MB (CK-2) Rel Index Troponin I C-Reactive Protein NT-Pro-B Natriuret Pep Total Protein Albumin Globulin Albumin/Globulin Ratio Procalcitonin Urine RBC Urine WBC Ur Squamous Epith Cells Urine Bacteria Ur Culture Indicated? Micro UA Comment Chlamy pneumoniae PCR Not detected Adenovirus (PCR) Not detected B. pertussis DNA (PCR) Not detected B.parapertussis DNA PCR Not detected Coronavirus OC43 (PCR) Not detected Coronavirus HKU1 (PCR) Not detected Coronavirus 229E (PCR) Not detected SARS-CoV-2 (PCR) Not detected Coronavirus NL63 (PCR) Not detected Human Metapneumovir PCR Not detected Influenza Type A (PCR) Not detected Influenza Type B (PCR) Not detected M. pneumoniae (PCR) Not detected Parainfluenza 1 (PCR) Not detected Parainfluenza 2 (PCR) Not detected Parainfluenza 3 (PCR) Not detected Parainfluenza 4 (PCR) Not detected RSV (PCR) Not detected Entero/Rhino (PCR) Detected H [facility] Medical History (Updated 01/15/22 @ 04:39 by ARTUR Jimenes) Acquired deafness of left ear Blindness of left eye Hearing loss History of brain tumor Malnutrition Surgical History (Updated 01/15/22 @ 03:54 by ARTUR Jimenes) History of brain surgery Social History household members: caregiver and other Smoking Status: Former smoker alcohol intake: current Discharge Plan Discharge Plan Patient Disposition: Home Provider Discharge Comment: You were admitted to the hospital with low oxygen levels, this improved rapidly and you were found to have a common cold virus (Rhinovirus). This may cause some reactive airway disease and wheezing. I have sent a short course of steroids and an inhaler to your pharmacy. You also had a possible UTI and will continue on antibiotics for a few days at home. Please follow up with your PCP ideally in 1 week to review your hospitalization. Discharge orders & Medications Prescriptions: New albuterol sulfate 90 mcg/actuation aerosol powdr breath activated 1 inh inhalation Q4-6H PRN (Reason: shortness of breath or wheezing) Qty: 1 0RF nitrofurantoin macrocrystal 100 mg capsule 100 mg PO BID 5 Days Qty: 10 0RF Rx Instructions: must administer with a meal/food Continued acetaminophen 500 mg tablet 1,000 mg PO TID quetiapine 25 mg tablet 25 mg PO BID aspirin 81 mg tablet,delayed release (DR/EC) 81 mg PO DAILY trazodone 50 mg tablet 50 mg PO BEDTIME levetiracetam 500 mg tablet 500 mg PO BID diltiazem HCl 120 mg capsule,extended release 24hr 120 mg PO DAILY cholecalciferol (vitamin D3) [Vitamin D3] 50 mcg (2,000 unit) capsule 2,000 unit PO DAILY calcium citrate-vitamin D3 315 mg-6.25 mcg (250 unit) tablet 1 tab PO BID Diet/Activity/Treatments Diet: Diet as Tolerated Activity: As tolerated Visit Report/Discharge Packet Instructions: DI for Urinary Tract Infection (UTI), DI for Common Cold Discharge Data Attending Provider: Cherie Agustin VTE Deep Vein Thrombosis/Pulmonary Embolism Present on Admission: No
[2022-01-15 15:05] VITALS: BP 120/55; PULSE 66; RESP 18; TEMP 36.5; O2SAT 97
--- NOTE | 2022-01-15 17:22 | PC.NURSE ---
Discharge Note Patient A&O, VSS, RA, no complaints of pain/discomfort. Discharge packet reviewed with patient and daughter. All questions/concerns addressed. PIV/TELE discontinued. Patient able to dress self and can ambulate to bathroom and around room with SBA and FWW. Patient taken down via wheelchair to POV.
== END 2022-01-15 17:15 | disposition home or self-care (01) | DRG 189 ==
LOC: ED 01-15 01:46 → AC 01-15 09:23
PROVIDERS: Admitting Provider Nurse Practitioner Family; Emergency Provider Emergency Medicine; Visit Provider Nurse Practitioner Family
DX: J96.02 Acute respiratory failure with hypercapnia (principal); E43 Unspecified severe protein-calorie malnutrition; Z68.1 Body mass index [BMI] 19.9 or less, adult; J96.01 Acute respiratory failure with hypoxia; Z20.822 Contact with and (suspected) exposure to COVID-19; Z87.891 Personal history of nicotine dependence; Z66 Do not resuscitate
CPT/HCPCS: 36415; 36600; 71045; 80048; 80053; 81003; 81015; 82550; 82805; 83605; 83735; 83880; 84145; 84484; 85025; 85379; 86140; 87040; 87077; 87086; 87147; 87186; 87633; 87635; 93005; 97162; 99284; C9803; G0378; J0696; J1650

== ENCOUNTER 2023-07-27 23:20 | Emergency (ER) | payer MEDICARE, SELFPAY ==
--- NOTE | 2023-07-27 23:24 | ED_ITS ---
HPI - Fall General Chief Complaint: Fall Stated Complaint: glf Time Seen by Provider: 07/27/23 23:22 History of Present Illness HPI Narrative: 82-year-old female with history of left-sided deficits, left-sided blindness presents by EMS from her assisted living facility for ground level fall x2 today. Patient had a ground level mechanical fall earlier in the day and was assessed by paramedics. Patient did not want to be evaluated at that time and stayed at her assisted facility. Patient again fell this evening and since this is the 2nd time medics has been called to evaluate her they told her she needed to be evaluated in the emergency department. Patient has a small laceration on her left posterior parietal scalp. Denies other complaitns. Related Data Home Medications Medication Instructions Recorded Confirmed acetaminophen 500 mg tablet 1,000 mg PO TID 01/15/22 01/15/22 aspirin 81 mg tablet,delayed 81 mg PO DAILY 01/15/22 01/15/22 release calcium citrate 315 mg 1 tab PO BID 01/15/22 01/15/22 calcium-vitamin D3 6.25 mcg (250 unit) tablet cholecalciferol (vitamin D3) 50 2,000 unit PO DAILY 01/15/22 01/15/22 mcg (2,000 unit) capsule (Vitamin D3) diltiazem HCl 120 mg 120 mg PO DAILY 01/15/22 01/15/22 capsule,extended release 24 hr levetiracetam 500 mg tablet 500 mg PO BID 01/15/22 01/15/22 quetiapine 25 mg tablet 25 mg PO BID 01/15/22 01/15/22 trazodone 50 mg tablet 50 mg PO BEDTIME 01/15/22 01/15/22 Previous Rx's Medication Instructions Recorded albuterol sulfate 90 mcg/actuation 1 inh inhalation Q4-6H PRN 01/15/22 breath activated powder inhaler shortness of breath or wheezing #1 ea Allergies Allergy/AdvReac Type Severity Reaction Status Date / Time morphine Allergy Verified 09/08/19 14:22 Penicillins Allergy Verified 09/08/19 14:22 Patient History Medical History 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 Hearing loss History of brain tumor Malnutrition Surgical History History of brain surgery Social History household members: caregiver and other Smoking Status: Former smoker alcohol intake: current Smoking Status: Former smoker alcohol intake frequency: 0-2 drinks per day Substance Use Type: does not use Exam Initial Vital Signs Initial Vital Signs: Vital Signs Temperature 96.7 F L 07/27/23 23:27 Pulse Rate 56 L 07/27/23 23:27 Respiratory Rate 17 07/27/23 23:27 Blood Pressure 163/76 H 07/27/23 23:27 Pulse Oximetry 99 07/27/23 23:27 Oxygen Delivery Method Room Air 07/27/23 23:27 Const: Awake, alert, no acute distress, frail, appears chronically unwell Cardiac: regular rate, regular rhythm RESP: unlabored, clear bilaterally, no wheezing MSK: Atraumatic, full range of motion, pulses equal Skin: 2.5cm laceration posterior parietal scalp Neuro: AO x2, CN II-XII grossly intact, moves all extremities Procedures Laceration Repair Laceration 1: Site: scalp Side (If applicable): left Size (cm): 2.5 Description: linear Depth: simple, single layer Pre-repair: wound explored and irrigated extensively Skin layer closed with: kala Number of sutures: 3 Course Orders Ordered: ED Orders 07/27/23 23:22 CT cervical spine wo con Stat CT head/brain wo con Stat Discontinued Medications Diphtheria/Tetanus/Acell Pertussis (Tet,Diph,Pertuss(Acell),Vac/Pf 0.5 Ml Syringe) 0.5 ml IM .ONCE ONE Stop: 07/27/23 23:43 Last Admin: 07/28/23 00:52 Dose: 0.5 ml Documented By: SHELLY Lidocaine/Prilocaine (Lidocaine/Prilocaine 5 Gm) 5 gm TOP NOW ONE Stop: 07/28/23 00:33 Last Admin: 07/28/23 00:43 Dose: Not Given Documented By: SHELLY Vital Signs Vital signs: Vital Signs - 8 hr 07/27/23 23:27 07/28/23 00:52 07/28/23 00:52 Temperature 96.7 F L Pulse Rate 56 L 63 Respiratory Rate 17 18 Blood Pressure 163/76 H 178/81 H Pulse Oximetry 99 95 Oxygen Delivery Method Room Air Room Air MDM - Fall Differential Diagnosis Differential diagnosis: Likely syncope, concussion with loss of consciousness and concussion without loss of consciousness Imaging Data CT - cervical spine: Radiologist's Impression: PROCEDURE: CT CERVICAL SPINE WO CON INDICATIONS: glf x2, head trauma TECHNIQUE: Noncontrast 3 mm thick sections acquired from the skull base to the T4 level. Sagittal and coronal reformats were then constructed. For radiation dose reduction, the following was used: automated exposure control, adjustment of mA and/or kV according to patient size. COMPARISON: None. FINDINGS: Image quality: Excellent. Bones: There is grade 1 anterolisthesis of C3 on C4. No fractures or dislocations. Visualized superior ribs are intact. Multilevel degenerative disc, most pronounced at C4-C5, C5-C6 and C6-C7. Bilateral facet arthropathy, most pronounced at C3-C4 bilaterally and C4-C5 on the right. Soft tissues: Prevertebral soft tissues are normal in thickness. No paravertebral hematomas. No apical pneumothoraces. Moderate emphysema. Postsurgical changes at the skull base. Please see separate CT head report. Ventricular shunt catheter coursing through the neck. IMPRESSION: 1. No displaced fracture or traumatic subluxation. 2. Multilevel degenerative disc and facet disease as described. Dictated by: Allen Sanchez M.D. on 07/27/2023 at 23:53 Approved by: Allen Sanchez M.D. on 07/27/2023 at 23:55 CT scan - head: Radiologist's Impression: PROCEDURE: CT HEAD/BRAIN WO CON INDICATIONS: glf x2, head injury TECHNIQUE: Noncontrast 4.5 mm thick angled axial sections acquired from the foramen magnum to the vertex, with coronal and sagittal reformats. For radiation dose reduction, the following was used: automated exposure control, adjustment of mA and/or kV according to patient size. COMPARISON: None. FINDINGS: Image quality: Diagnostic. CSF spaces: There is a ventricular shunt catheter entering from the right parietal area with the tip in the region of foramen Monro. Ventricles are small. Basal cisterns are patent. Low-density subdural fluid collections are most likely subdural hygromas. Brain: Resection of the left cerebellum. 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 No intracranial bleeds or masses. There is cerebral volume loss for age, with resultant ventricular and sulcal prominence. There are periventricular and deep white matter chronic small vessel ischemic changes. There is intracranial internal carotid artery atherosclerosis. Skull and face: Craniotomy. Calvarium and visualized facial bones appear intact, without suspicious lesions. Sinuses: Visualized sinuses and mastoids are clear. IMPRESSION: 1. No acute intracranial pathology. 2. Bilateral small subdural hygroma. No mass effect or midline shift. Comparison to prior examinations, if available, would be helpful. 3. Surgical resection of the left cerebellum. 4. 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 5. There is ventricular peritoneal shunting. The tip of the catheter is in the area of foramen Monro. Ventricles are small. Dictated by: Allen Sanchez M.D. on 07/27/2023 at 23:48 Approved by: Allen Sanchez M.D. on 07/27/2023 at 23:52 MDM Narrative Medical decision making narrative: Two ground level falls today. Patient reportedly at her neurologic baseline. She has a facial droop on the left-hand side but this is chronic and unchanged. Patient has an approximately 2.5 cm laceration on her scalp. No info on her last tetanus shot and this will be updated here. On assessment patient denies pain in any location, there was no tenderness to palpation in her upper extremities, chest wall, hips, lower extremities and no deformities noted. CT of head and C-spine negative for acute findings. Patient has hygromas present on her CT head without priors for comparison. Patient's wound irrigated and repaired per procedure note. Patient ambulatory with a walker. Discharged back to her care facility in stable condition. Discharge Plan Departure Patient Disposition: Home Clinical Impression: Head injury Laceration of head Qualifiers: Encounter type: initial encounter Location of open wound of head: scalp Foreign body presence: without foreign body Qualified Code(s): S01.01XA - Laceration without foreign body of scalp, initial encounter Instructions: DI for Laceration Repair -- [place] Activity Restrictions/Additional Instructions: [place] need to be removed in 10 days. Keep clean and dry. If you get them wet pat them dry. Take Tylenol and apply ice as needed for pain or swelling Prescriptions: No Action acetaminophen 500 mg tablet 1,000 mg PO TID quetiapine 25 mg tablet 25 mg PO BID aspirin 81 mg tablet,delayed release (DR/EC) 81 mg PO DAILY trazodone 50 mg tablet 50 mg PO BEDTIME levetiracetam 500 mg tablet 500 mg PO BID diltiazem HCl 120 mg capsule,extended release 24hr 120 mg PO DAILY cholecalciferol (vitamin D3) [Vitamin D3] 50 mcg (2,000 unit) capsule 2,000 unit PO DAILY calcium citrate-vitamin D3 315 mg-6.25 mcg (250 unit) tablet 1 tab PO BID albuterol sulfate 90 mcg/actuation aerosol powdr breath activated 1 inh inhalation Q4-6H PRN (Reason: shortness of breath or wheezing) Qty: 1 0RF Stand Alone Forms: Patient Portal/API
[2023-07-27 23:27] VITALS: BP 163/76; PULSE 56; RESP 17; TEMP 35.9; O2SAT 99; BMI 16.5
[2023-07-28 00:52] VITALS: BP 178/81; PULSE 63; RESP 18; O2SAT 95
[2023-07-28] MEDS: TET,DIPH,PERTUSS(ACELL),VAC/PF 0.5 ML SYRINGE IM (00:52)
--- NOTE | 2023-07-28 00:54 | PC.NURSE ---
[employer] SPECIALIST note: Got patient up to go to the bathroom. Patient needed a walker and a lot of cueing to get up. Patient put walker very ahead of her, and when I tried to cue her to move it closer patient still kept it moving it very far away. Patient got to the door of the room, and when I ask how she felt. Patient responded unsteady. Got patient back to the bed when we got a bedside commode for patient. Patient was able to void. Patient got up and had left sided weakness. Told Doctor Glenn.
== END 2023-07-28 01:30 | disposition home or self-care (01) ==
PROVIDERS: Emergency Provider Emergency Medicine
DX: S01.01XA Laceration without foreign body of scalp, initial encounter (principal); S09.90XA Unspecified injury of head, initial encounter; W18.30XA Fall on same level, unspecified, initial encounter; Z23 Encounter for immunization
CPT/HCPCS: 12001; 70450; 72125; 90471; 99284; 90715

== ENCOUNTER 2024-06-05 14:00 | Emergency (ER) | payer MEDICARE, OTHER, SELFPAY ==
[2024-06-05] VITALS (7 sets, daily range): BP systolic 104–120; BP diastolic 53–56; PULSE 68–82; RESP 14–20; TEMP 36.7; O2SAT 87–100; BMI 23.1
--- NOTE | 2024-06-05 14:12 | DI.RAD.S_ITS ---
PROCEDURE: XR CHEST 1V INDICATIONS: choking/heimlich needed/aspiration? TECHNIQUE: One view of the chest was acquired. COMPARISON: [facility], CR, XR CHEST 1V, 01/15/2022, 0:19. FINDINGS: Surgical changes and devices: None. Lungs and pleura: At the left lung base, there is poorly defined, streaky opacity. An incomplete inspiratory result is noted, causing a crowded appearance to the lung markings. No pneumothorax or significant pleural effusions are seen. Mediastinum: The cardiac contours are within normal limits. The aorta demonstrates calcification and tortuosity. Bones and chest wall: There is a remote fracture of the left humeral neck. Mac row digest Mild dextroconvex scoliotic curvature is seen. No suspicious bony lesions. Overlying soft tissues appear unremarkable. IMPRESSION: Poorly defined streaky opacity seen at the left lung base. Differential diagnosis includes atelectasis versus aspiration pneumonia. Please consider follow-up CT versus short-term follow-up plain film. Dictated by: Jake Dozier M.D. on 06/05/2024 at 14:12 Approved by: Jake Dozier M.D. on 06/05/2024 at 14:13
--- NOTE | 2024-06-05 14:52 | EKG_ITS ---
[place] [id number] [place] [id number] Test Date: 2024-06-05 Pat Name: Tari Olson Department: [facility] Room: Gender: Female Director Of Strategic Communications: DEBORAH : 1940 Requested By: Order Number: [id number] Reading MD: Cesar Dumont MD Measurements Intervals [place] Rate: 73 P: 46 MA: 256 QRS: -55 QRSD: 84 T: 41 QT: 392 QTc: 431 Interpretive Statements Sinus rhythm with 1st degree AV block Left anterior fascicular block Septal infarct , age undetermined Electronically Signed On 06-05-2024 15:57:31 PST by Cesar Dumont MD
[2024-06-05] MEDS: SODIUM CHLORIDE 0.9% 1,000 ML 1000 ML IV (15:18)
[2024-06-05 15:25] LABS: Add Manual Diff / Slide Review NO; Basophils Absolute Auto 0 /uL (0-100); Basophils Percent Auto 0.7 % (0-2); Eosinophils Absolute Auto 0 /uL (0-450); Eosinophils Percent Auto 0.8 % (2-4); Hematocrit 37.3 % (36-46); Hemoglobin 12.2 g/dL (12.0-16.0); Lymphocytes Absolute Auto 1700 /uL (1100-4500); Lymphocytes Percent Auto 26.5 % (25-40); Mean Corpuscular HGB Conc 32.8 % (30-36); Mean Corpuscular Hemoglobin 31.7 PG (26-34); Mean Corpuscular Volume 96.7 fL (80-100); Monocytes Absolute Auto 500 /uL (0-900); Monocytes Percent Auto 7.7 % (3-14); Neutrophils Absolute Auto 4100 /uL (1500-7000); Neutrophils Percent Auto 64.3 % (50-75); Platelet Count 308 X10^3/uL (150-400); Red Blood Cell Count 3.86 X10^6/uL (4.0-5.2); Red Cell Distribution Width 14.2 % (11.6-14.8); White Blood Cell Count 6.4 X10^3/uL (4.5-11.0)
[2024-06-05 15:30] LABS: Alanine Aminotransferase 27 IU/L (<35); Albumin 4.4 g/dL (3.5-5.0); Albumin Globulin Ratio 1.3 (1.0-2.8); Alkaline Phosphatase 61 U/L (38-126); Aspartate Aminotransferase 39 IU/L (14-36); BUN Creatinine Ratio 28.6 (6-22); Bilirubin Total 0.4 mg/dL (0.2-1.3); Blood Urea Nitrogen 16 mg/dL (7-17); Calcium 9.4 mg/dL (8.4-10.2); Carbon Dioxide 31 mmol/L (22-32); Chloride 99 mmol/L (98-107); Estimated Glomerular Filt Rate > 60 mL/min (>60); Globulin 3.3 g/dL (1.7-4.1); Glucose 159 mg/dL (80-110); HEMOLYSIS 45 (0-50); Lipase 51 U/L (23-300); Potassium 4.5 mmol/L (3.4-5.1); Sodium 136 mmol/L (137-145); Total Protein 7.7 g/dL (6.3-8.2)
[2024-06-05 15:32] LABS: Prothrombin Time 11.1 SECONDS (9.4-12.5)
--- NOTE | 2024-06-05 15:32 | ED_ITS ---
HPI - SOB/Dyspnea General Chief Complaint: Shortness of Breath/Dyspnea Stated Complaint: choked Time Seen by Provider: 06/05/24 15:24 History of Present Illness HPI Narrative: Patient is an 83 year female history of multiple brain tumors with surgery short term memory loss lives at adult shelter presents today with daughter after an aspiration episode. According to daughter patient has had upper respiratory like symptoms for a couple of days however today while eating an apple she choked some version of the Heimlich maneuver was performed. She came to the ED for further evaluation. She initially was 87% on room air. Daughter reports that she has chronic aspiration at baseline. She is chronic left-sided deficits. She was awake alert and participating in exam and questioning Related Data Home Medications Medication Instructions Recorded Confirmed acetaminophen 500 mg tablet 1,000 mg PO TID 01/15/22 08/05/23 aspirin 81 mg tablet,delayed 81 mg PO DAILY 01/15/22 08/05/23 release calcium 315 mg (as 1 tab PO BID 01/15/22 08/05/23 citrate)-vitamin D3 6.25 mcg (250 unit) tablet cholecalciferol (vitamin D3) 50 2,000 unit PO DAILY 01/15/22 08/05/23 mcg (2,000 unit) capsule (Vitamin D3) diltiazem HCl 120 mg 120 mg PO DAILY 01/15/22 08/05/23 capsule,extended release 24 hr levetiracetam 500 mg tablet 500 mg PO BID 01/15/22 08/05/23 quetiapine 25 mg tablet 25 mg PO BID 01/15/22 08/05/23 trazodone 50 mg tablet 50 mg PO BEDTIME 01/15/22 08/05/23 Previous Rx's Medication Instructions Recorded albuterol sulfate 90 mcg/actuation 1 inh inhalation Q4-6H PRN 01/15/22 breath activated powder inhaler shortness of breath or wheezing #1 ea Allergies Allergy/AdvReac Type Severity Reaction Status Date / Time morphine Allergy Verified 08/05/23 10:28 Penicillins Allergy Verified 08/05/23 10:28 Patient History Medical History 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 Hearing loss History of brain tumor Malnutrition Surgical History History of brain surgery Social History household members: caregiver and other Smoking Status: Former smoker alcohol intake: current Smoking Status: Former smoker alcohol intake frequency: 0-2 drinks per day Exam Initial Vital Signs Initial Vital Signs: Vital Signs Temperature 98.1 F 06/05/24 14:08 Pulse Rate 81 06/05/24 14:08 Respiratory Rate 20 06/05/24 14:08 Blood Pressure 120/55 L 06/05/24 14:08 Pulse Oximetry 87 L 06/05/24 14:08 Oxygen Delivery Method Room Air 06/05/24 14:08 GENERAL: Thin alert 83-year-old female HEENT: Head atraumatic,EOMI, pupils reactive facial droop CARDIOVASCULAR: Regular rate and rhythm without murmurs, rubs or gallops. RESPIRATORY: Breath sounds equal bilaterally, no wheezes rales or rhonchi. ABDOMEN: Soft, nontender. Normoactive bowel sounds all 4 quadrants. No guarding or rebound. EXTREMITIES: Normal range of motion, no clubbing or edema. Neurovascularly intact NEUROLOGICAL: Alert slurring of speech at baseline daughter understands her chronic left-sided deficits SKIN: Warm, dry, no laceration, no petechiae, no rashes or lesions. Course Orders Ordered: ED Orders 06/05/24 14:05 Complete Blood Count AUTO DIFF Stat Comprehensive Metabolic Panel Stat Lipase Stat Procalcitonin Stat 06/05/24 14:12 XR chest 1V Stat 06/05/24 14:21 Covid-19 + FLU A/B + RSV - PCR Stat 06/05/24 14:52 Blood Culture Stat EKG-12 Lead Stat RT Consult Eval and Treat NOW 06/05/24 15:15 Lactate (Lactic Acid) Stat PTT Partial Thromboplastin Grady Stat Prothrombin Time INR Stat Discontinued Medications Sodium Chloride (Normal Saline 0.9%) 1,000 mls @ 1,000 mls/hr IV BOLUS ONE Stop: 06/05/24 15:51 Last Admin: 06/05/24 15:18 Dose: 1,000 mls/hr Documented By: JEFFRY Ondansetron HCl (Ondansetron 4 Mg/2 Ml Inj) 4 mg IV NOW PRN PRN Reason: Nausea And Vomiting Ondansetron HCl (Ondansetron 4 Mg Odt) 4 mg SL NOW PRN PRN Reason: Nausea And Vomiting Vital Signs Vital signs: Vital Signs - 8 hr 06/05/24 14:08 06/05/24 14:14 06/05/24 14:30 Temperature 98.1 F Pulse Rate 81 82 81 Respiratory Rate 20 Blood Pressure 120/55 L Pulse Oximetry 87 L 88 L 98 Oxygen Delivery Method Room Air Nasal Cannula Oxygen Flow Rate 2 06/05/24 15:00 06/05/24 15:24 06/05/24 15:24 Temperature Pulse Rate 70 73 Respiratory Rate 16 19 Blood Pressure 108/56 L 104/53 L Pulse Oximetry 100 98 Oxygen Delivery Method Oxygen Flow Rate 06/05/24 15:30 06/05/24 16:06 Temperature Pulse Rate 70 68 Respiratory Rate 14 18 Blood Pressure Pulse Oximetry 100 96 Oxygen Delivery Method Room Air Oxygen Flow Rate MDM - SOB/Dyspnea Lab Data 06/05/24 14:05 06/05/24 14:05 Labs: Lab Results 06/05/24 06/05/24 06/05/24 Range/Units 14:05 14:21 15:15 WBC 6.4 (4.5-11.0) X10^3/uL RBC 3.86 L (4.0-5.2) X10^6/uL Hgb 12.2 (12.0-16.0) g/dL Hct 37.3 (36-46) % MCV 96.7 (80-100) fL MCH 31.7 (26-34) PG MCHC 32.8 (30-36) % RDW 14.2 (11.6-14.8) % Plt Count 308 (150-400) X10^3/uL Neut % (Auto) 64.3 (50-75) % Lymph % (Auto) 26.5 (25-40) % [place] % (Auto) 7.7 (3-14) % Eos % (Auto) 0.8 L (2-4) % Baso % (Auto) 0.7 (0-2) % Neut # (Auto) 4100 (3058-4134) /uL Lymph # (Auto) 1700 (4830-7588) /uL [place] # (Auto) 500 (0-900) /uL Eos # (Auto) 0 (0-450) /uL Baso # (Auto) 0 (0-100) /uL PT 11.1 (9.4-12.5) SECONDS INR 1.0 (0.9-1.3) APTT 33 (25.1-36.5) SECONDS Sodium 136 L (137-145) mmol/L Potassium 4.5 (3.4-5.1) mmol/L Chloride 99 (98-107) mmol/L Carbon Dioxide 31 (22-32) mmol/L BUN 16 (7-17) mg/dL Creatinine 0.56 (0.52-1.04) mg/dL Estimated GFR > 60 (>60) mL/min BUN/Creatinine Ratio 28.6 H (6-22) Glucose 159 H (80-110) mg/dL Lactate 2.0 (0.7-2.1) mmol/L Calcium 9.4 (8.4-10.2) mg/dL Total Bilirubin 0.4 (0.2-1.3) mg/dL AST 39 H (14-36) IU/L ALT 27 (<35) IU/L Alkaline Phosphatase 61 (38-126) U/L Total Protein 7.7 (6.3-8.2) g/dL Albumin 4.4 (3.5-5.0) g/dL Globulin 3.3 (1.7-4.1) g/dL Albumin/Globulin Ratio 1.3 (1.0-2.8) Lipase 51 (23-300) U/L Procalcitonin 0.616 H (<0.5) ng/mL SARS-CoV-2 (PCR) Negative (Negative) Influenza A (RT-PCR) Flu a negative (NEGATIVE) Influenza B (RT-PCR) Flu b negative (NEGATIVE) RSV (PCR) Negative (Negative) Imaging Data Chest x-ray: Radiologist's Impression: PROCEDURE: XR CHEST 1V INDICATIONS: choking/heimlich needed/aspiration? TECHNIQUE: One view of the chest was acquired. COMPARISON: [facility], , XR CHEST 1V, 01/15/2022, 0:19. FINDINGS: Surgical changes and devices: None. Lungs and pleura: At the left lung base, there is poorly defined, streaky opacity. An incomplete inspiratory result is noted, causing a crowded appearance to the lung markings. No pneumothorax or significant pleural effusions are seen. Mediastinum: The cardiac contours are within normal limits. The aorta demonstrates calcification and tortuosity. Bones and chest wall: There is a remote fracture of the left humeral neck. Mac row digest Mild dextroconvex scoliotic curvature is seen. No suspicious bony lesions. Overlying soft tissues appear unremarkable. IMPRESSION: Poorly defined streaky opacity seen at the left lung base. Differential diagnosis includes atelectasis versus aspiration pneumonia. Please consider follow-up CT versus short-term follow-up plain film. Dictated by: Jake Dozier M.D. on 06/05/2024 at 14:12 ECG Data Attestation: I personally reviewed and interpreted this ECG as follows: Interpretation: Sinus rhythm rate 73 DC interval 256 QRS 84 QTC 430 MDM Narrative Medical decision making narrative: MDM CC: Choking Complicating co-morbidities: Brain tumors left-sided weakness chronic aspiration memory impairment Data collected from: Daughter at bedside is primary historian Medical records reviewed: Previous ED visits Differential considered: Acute aspiration versus chronic aspiration versus viral illness versus pneumonia Exam documented above, pertinent findings include: Alert elderly frail 83-year-old female with chronic left-sided deficits Lab Test results independently reviewed as above. Pertinent findings: WBC 6.4 hemoglobin 12.2 hematocrit 37.3 platelets 308 Electrolytes within normal limits sodium is 136 potassium 4.5 chloride 99 carbon dioxide 31 BUN 16 creatinine 0.5 Lactate 2.0 Liver enzymes bilirubin within normal limits Independently reviewed EKG as above no ischemia Imaging studies independently reviewed: Chest x-ray streak left lung base possible atelectasis versus pneumonia Treatments: None Re-evaluations: Oxygen turned off she remains well above 90%. Patient ambulated with a walker to the restroom oxygen was 99% after going to the restroom Discussion: Patient 83-year-old female who has a history of multiple brain tumors short-term memory loss lives at adult shelter presents today with a door an aspiration episode. She did have some cyanosis during the event and was mildly hypoxic when she 1st arrived. However now not requiring oxygen even after an ambulation trial. She has no leukocytosis. There is questionable aspiration versus atelectasis in the left lung base on chest x-ray. However patient is a chronic aspirated without sign of acute infection. Viral panel is also negative. At this time no need for admission Discharge Plan Departure Patient Disposition: Home Clinical Impression: Choking, Aspiration of food Activity Restrictions/Additional Instructions: *You have been diagnosed with aspiration *What to do: At this time no need for antibiotics would continue to wait for fever or worsening cough or shortness breast Blood work and workup in the ED overall reassuring viral panel negative *Continue to take medications as directed *Follow up with your primary care provider in 2-3 days or call [phone] *Return to ER if you should have fever cough confusion or any new, worsening or concerning symptoms Prescriptions: No Action acetaminophen 500 mg tablet 1,000 mg PO TID quetiapine 25 mg tablet 25 mg PO BID aspirin 81 mg tablet,delayed release (DR/EC) 81 mg PO DAILY trazodone 50 mg tablet 50 mg PO BEDTIME levetiracetam 500 mg tablet 500 mg PO BID diltiazem HCl 120 mg capsule,extended release 24hr 120 mg PO DAILY cholecalciferol (vitamin D3) [Vitamin D3] 50 mcg (2,000 unit) capsule 2,000 unit PO DAILY calcium citrate-vitamin D3 315 mg-6.25 mcg (250 unit) tablet 1 tab PO BID albuterol sulfate 90 mcg/actuation aerosol powdr breath activated 1 inh inhalation Q4-6H PRN (Reason: shortness of breath or wheezing) Qty: 1 0RF Referrals: Miscellaneous,Doctor, MD [Primary Care Provider] - Stand Alone Forms: Patient Portal/API/Survey
[2024-06-05 15:34] LABS: Influenza A - CEPHEID Flu A NEGATIVE (NEGATIVE); Influenza B - CEPHEID Flu B NEGATIVE (NEGATIVE); Respiratory Syncytial Virus Negative (Negative)
[2024-06-05 15:35] LABS: COVID-19 CEPHEID 4-PLEX PCR Negative (Negative)
[2024-06-05 15:35] LABS: PTT Partial Thromboplastin Tim 33 SECONDS (25.1-36.5)
[2024-06-05 15:46] LABS: Procalcitonin 0.616 ng/mL (<0.5)
== END 2024-06-05 16:09 | disposition home or self-care (01) ==
PROVIDERS: Emergency Provider Emergency Medicine
DX: T17.928A Food in respiratory tract, part unspecified causing other injury, initial encounter (principal); T17.308A Unspecified foreign body in larynx causing other injury, initial encounter; Z88.0 Allergy status to penicillin; R09.89 Other specified symptoms and signs involving the circulatory and respiratory systems
CPT/HCPCS: 0241U; 36415; 71045; 80053; 83605; 83690; 84145; 85025; 85610; 85730; 87040; 93005; 93010; 96360; 99284

== ENCOUNTER 2024-07-03 19:24 | Emergency (ER) | payer MEDICARE, OTHER, SELFPAY ==
[2024-07-03] VITALS (8 sets, daily range): BP systolic 87–140; BP diastolic 50–63; PULSE 49–59; RESP 14–16; TEMP 36.3; O2SAT 89–96
--- NOTE | 2024-07-03 19:48 | DI.RAD.S_ITS ---
PROCEDURE: XR HIP W PEL IF DONE LT 2V INDICATIONS: fall with pain to left hip TECHNIQUE: 2 views of the hip were acquired. COMPARISON: None. FINDINGS: Bones: No fractures or dislocations. No suspicious bony lesions. The visualized pelvic ring appears intact. Soft tissues: No suspicious soft tissue calcifications or masses. IMPRESSION: No acute bony abnormality. Dictated by: Kerwin Chapman M.D. on 07/03/2024 at 20:42 Approved by: Kerwin Chapman M.D. on 07/03/2024 at 20:45
--- NOTE | 2024-07-03 20:05 | DI.RAD.S_ITS ---
PROCEDURE: XR CHEST 1V INDICATIONS: short of breath fall TECHNIQUE: One view of the chest was acquired. COMPARISON: [facility], CR, XR CHEST 1V, 06/05/2024, 14:13. [facility], CR, XR CHEST 1V, 01/15/2022, 0:19. FINDINGS: Surgical changes and devices: Other Lungs and pleura: Lungs are clear. No pleural effusions or pneumothorax. Mediastinum: Mediastinal contours appear normal. Heart size is normal. Bones and chest wall: No suspicious bony lesions. Overlying soft tissues appear unremarkable. Healed left rib fractures. IMPRESSION: No displaced fracture or pneumothorax. Dictated by: Kerwin Chapman M.D. on 07/03/2024 at 21:06 Approved by: Kerwin Chapman M.D. on 07/03/2024 at 21:07
--- NOTE | 2024-07-03 20:05 | PC.NURSE ---
Imaging at bedside
--- NOTE | 2024-07-03 20:22 | DI.RAD.S_ITS ---
PROCEDURE: XR FEMUR LT MIN 2V INDICATIONS: fall TECHNIQUE: 2 views of the femur were acquired. COMPARISON: None. FINDINGS: Bones: No fractures or dislocations. No suspicious bony lesions. Surgical fixation of the distal femur. Partially visualized intramedullary summer fixation of the tibia. Soft tissues: No suspicious soft tissue calcifications or masses. IMPRESSION: No acute bony abnormality. Dictated by: Kerwin Chapman M.D. on 07/03/2024 at 20:45 Approved by: Kerwin Chapman M.D. on 07/03/2024 at 20:47
--- NOTE | 2024-07-03 20:35 | ED_ITS ---
HPI - Fall General Chief Complaint: Fall Stated Complaint: fall Time Seen by Provider: 07/03/24 20:04 Source: EMS Mode of arrival: EMS History of Present Illness HPI Narrative: Patient is a miguel a 83-year-old female carry multiple brain tumors with surgery short term [facility] presents today with ground level fall. She was unsteady at baseline. She does stand and pivot. She fell today pain in her left hip. No head injury no neck pain no anticoagulation, does take aspirin daily. She did receive fentanyl with EMS Related Data Home Medications Medication Instructions Recorded Confirmed acetaminophen 500 mg tablet 1,000 mg PO TID 01/15/22 08/05/23 aspirin 81 mg tablet,delayed 81 mg PO DAILY 01/15/22 08/05/23 release calcium 315 mg (as 1 tab PO BID 01/15/22 08/05/23 citrate)-vitamin D3 6.25 mcg (250 unit) tablet cholecalciferol (vitamin D3) 50 2,000 unit PO DAILY 01/15/22 08/05/23 mcg (2,000 unit) capsule (Vitamin D3) diltiazem HCl 120 mg 120 mg PO DAILY 01/15/22 08/05/23 capsule,extended release 24 hr levetiracetam 500 mg tablet 500 mg PO BID 01/15/22 08/05/23 quetiapine 25 mg tablet 25 mg PO BID 01/15/22 08/05/23 trazodone 50 mg tablet 50 mg PO BEDTIME 01/15/22 08/05/23 Previous Rx's Medication Instructions Recorded albuterol sulfate 90 mcg/actuation 1 inh inhalation Q4-6H PRN 01/15/22 breath activated powder inhaler shortness of breath or wheezing #1 ea Allergies Allergy/AdvReac Type Severity Reaction Status Date / Time morphine Allergy Verified 08/05/23 10:28 Penicillins Allergy Verified 08/05/23 10:28 Patient History Medical History 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 Hearing loss History of brain tumor Malnutrition Surgical History History of brain surgery Social History household members: caregiver and other Smoking Status: Former smoker alcohol intake: current Smoking Status: Former smoker alcohol intake frequency: 0-2 drinks per day Exam Initial Vital Signs Initial Vital Signs: Vital Signs Temperature 97.3 F L 07/03/24 19:37 Pulse Rate 59 L 07/03/24 19:37 Respiratory Rate 14 07/03/24 19:37 Blood Pressure 105/55 L 07/03/24 19:37 Pulse Oximetry 89 L 07/03/24 19:37 Oxygen Delivery Method Room Air 07/03/24 19:37 GENERAL: Weak alert 83-year-old female and in [no acute] distress. HEENT: Head atraumatic,EOMI, pupils reactive, facial droop noted chronic, hard of hearing CARDIOVASCULAR: Regular rate and rhythm without murmurs, rubs or gallops. RESPIRATORY: Breath sounds equal bilaterally, no wheezes rales or rhonchi. No rib pain ABDOMEN: Soft, nontender. Normoactive bowel sounds all 4 quadrants. No guarding or rebound. EXTREMITIES: Normal range of motion, no clubbing or edema. Neurovascularly intact Left lower extremity trochanteric pain but able to flex and extend hip good internal external rotation legs are of equal length distal pedal pulse intact knee is within normal limits NEUROLOGICAL: Alert and oriented x4. Gas [place] strength equal bilaterally SKIN: Warm, dry, no laceration, no petechiae, no rashes or lesions. Course Orders Ordered: ED Orders 07/03/24 19:48 XR hip w pel if done LT 2V Stat 07/03/24 20:05 Chest [XR chest 1V] Stat 07/03/24 20:22 XR femur LT min 2V Stat Discontinued Medications Acetaminophen (Acetaminophen 325 Mg Tablet) 650 mg PO NOW ONE Stop: 07/03/24 21:43 Last Admin: 07/03/24 21:49 Dose: 650 mg Documented By: MONO Vital Signs Vital signs: Vital Signs - 8 hr 07/03/24 19:37 07/03/24 20:04 07/03/24 20:04 Temperature 97.3 F L Pulse Rate 59 L 54 L Respiratory Rate 14 Blood Pressure 105/55 L 140/63 Pulse Oximetry 89 L 96 Oxygen Delivery Method Room Air Room Air 07/03/24 20:30 07/03/24 20:31 07/03/24 20:31 Temperature Pulse Rate 51 L 49 L Respiratory Rate Blood Pressure 117/58 L Pulse Oximetry 92 92 Oxygen Delivery Method Room Air 07/03/24 21:00 07/03/24 21:00 07/03/24 21:30 Temperature Pulse Rate 50 L 49 L Respiratory Rate 14 Blood Pressure 105/52 L Pulse Oximetry 93 93 Oxygen Delivery Method Room Air 07/03/24 21:31 07/03/24 21:31 07/03/24 21:38 Temperature Pulse Rate 51 L Respiratory Rate Blood Pressure 87/50 L 113/56 L Pulse Oximetry 92 Oxygen Delivery Method 07/03/24 21:38 Temperature Pulse Rate 53 L Respiratory Rate 16 Blood Pressure Pulse Oximetry 93 Oxygen Delivery Method MDM - Fall Imaging Data Extremity x-ray #1: Radiologist's Impression: PROCEDURE: XR HIP W PEL IF DONE LT 2V INDICATIONS: fall with pain to left hip TECHNIQUE: 2 views of the hip were acquired. COMPARISON: None. FINDINGS: Bones: No fractures or dislocations. No suspicious bony lesions. The visualized pelvic ring appears intact. Soft tissues: No suspicious soft tissue calcifications or masses. IMPRESSION: No acute bony abnormality. Dictated by: Kerwin Chapman M.D. on 07/03/2024 at 20:42 Extremity x-ray #2: Radiologist's Impression: PROCEDURE: XR FEMUR LT MIN 2V INDICATIONS: fall TECHNIQUE: 2 views of the femur were acquired. COMPARISON: None. FINDINGS: Bones: No fractures or dislocations. No suspicious bony lesions. Surgical fixation of the distal femur. Partially visualized intramedullary summer fixation of the tibia. Soft tissues: No suspicious soft tissue calcifications or masses. IMPRESSION: No acute bony abnormality. Dictated by: Kerwin Chapman M.D. on 07/03/2024 at 20:45 Approved by: Kerwin Chapman M.D. on 07/03/2024 at 20:47 Chest x-ray: Radiologist's Impression: PROCEDURE: XR CHEST 1V INDICATIONS: short of breath fall TECHNIQUE: One view of the chest was acquired. COMPARISON: [facility], CR, XR CHEST 1V, 06/05/2024, 14:13. [facility], CR, XR CHEST 1V, 01/15/2022, 0:19. FINDINGS: Surgical changes and devices: Other Lungs and pleura: Lungs are clear. No pleural effusions or pneumothorax. Mediastinum: Mediastinal contours appear normal. Heart size is normal. Bones and chest wall: No suspicious bony lesions. Overlying soft tissues appear unremarkable. Healed left rib fractures. IMPRESSION: No displaced fracture or pneumothorax. Dictated by: Kerwin Chapman M.D. on 07/03/2024 at 21:06 MDM Narrative Medical decision making narrative: Patient is a miguel a year old female who is difficulty walking at baseline ground level fall today with left hip pain. Received fentanyl prior to arrival. She was mildly hypoxic does not typically wear oxygen. X-ray is clear. She does have left pain. You feel some sort of abnormality but she is full range of motion x-rays are negative. No longer requiring oxygen blood pressure normal as well. She was given Tylenol here. Patient did not want daughter called at this time. Discharge Plan Departure Patient Disposition: Home Clinical Impression: Acute pain of left hip Instructions: DI for Hip Pain Activity Restrictions/Additional Instructions: *You have been diagnosed with hip pain *What to do: At this time x-rays are negative for any fracture or abnormality. Maybe sore ice 20-30 minutes at a time *Continue to take medications as directed Tylenol as needed *Follow up with your primary care provider in 2-3 days or call [phone] *Return to ER if you should have increasing pain or any new, worsening or concerning symptoms Prescriptions: No Action acetaminophen 500 mg tablet 1,000 mg PO TID quetiapine 25 mg tablet 25 mg PO BID aspirin 81 mg tablet,delayed release (DR/EC) 81 mg PO DAILY trazodone 50 mg tablet 50 mg PO BEDTIME levetiracetam 500 mg tablet 500 mg PO BID diltiazem HCl 120 mg capsule,extended release 24hr 120 mg PO DAILY cholecalciferol (vitamin D3) [Vitamin D3] 50 mcg (2,000 unit) capsule 2,000 unit PO DAILY calcium citrate-vitamin D3 315 mg-6.25 mcg (250 unit) tablet 1 tab PO BID albuterol sulfate 90 mcg/actuation aerosol powdr breath activated 1 inh inhalation Q4-6H PRN (Reason: shortness of breath or wheezing) Qty: 1 0RF Referrals: Miscellaneous,Doctor, MD [Primary Care Provider] - Stand Alone Forms: Patient Portal/API/Survey
--- NOTE | 2024-07-03 20:39 | PC.NURSE ---
Imaging at bedside
--- NOTE | 2024-07-03 21:10 | PC.NURSE ---
Pt resting quietly with eyes closed, resps even and not labored. No distress noted at this time. Pt remains connected to blood pressure and pulse ox monitors with alarms on and audible. Call light within reach. Exam room door remains open for frequent observation by staff.
[2024-07-03] MEDS: ACETAMINOPHEN 325 MG TABLET 650 MG PO (21:49)
== END 2024-07-03 22:01 | disposition home or self-care (01) ==
PROVIDERS: Emergency Provider Emergency Medicine
DX: M25.552 Pain in left hip (principal); R06.02 Shortness of breath; W18.30XA Fall on same level, unspecified, initial encounter; Z87.891 Personal history of nicotine dependence; F10.90 Alcohol use, unspecified, uncomplicated
CPT/HCPCS: 71045; 73502; 73552; 99283

== ENCOUNTER 2024-09-03 12:41 | Emergency (ER) | payer MEDICARE, OTHER, SELFPAY ==
[2024-09-03] VITALS (15 sets, daily range): BP systolic 82–114; BP diastolic 45–65; PULSE 63–80; RESP 12–22; TEMP 36.2; O2SAT 90–99
--- NOTE | 2024-09-03 12:45 | DI.RAD.S_ITS ---
PROCEDURE: XR CHEST 1V INDICATIONS: LOC, ? aspiration event TECHNIQUE: One view of the chest was acquired. COMPARISON: [facility], CR, XR CHEST 1V, 07/03/2024, 20:32. [facility], CR, XR CHEST 1V, 06/05/2024, 14:13. FINDINGS: Surgical changes and devices: None. Lungs and pleura: Small pleural effusions. Mediastinum: Mediastinal contours appear normal. Heart size is mildly enlarged. Bones and chest wall: No suspicious bony lesions. Overlying soft tissues appear unremarkable. IMPRESSION: Small pleural effusions. No evidence of aspiration. Dictated by: Kerwin Chapman M.D. on 09/03/2024 at 13:20 Approved by: Kerwin Chapman M.D. on 09/03/2024 at 13:24
--- NOTE | 2024-09-03 12:47 | DI.CT.S_ITS ---
PROCEDURE: CT HEAD/BRAIN WO CON INDICATIONS: LOC, ? aspiration vs other, hx brain tumors TECHNIQUE: Noncontrast 4.5 mm thick angled axial sections acquired from the foramen magnum to the vertex, with coronal and sagittal reformats. For radiation dose reduction, the following was used: automated exposure control, adjustment of mA and/or kV according to patient size. COMPARISON: Located [facility], CT, CT HEAD/BRAIN WO CON, 07/27/2023, 23:27. FINDINGS: Image quality: Diagnostic. CSF spaces: Basal cisterns are patent. Lateral low-attenuation subdural fluid collections bilaterally. ENGINEERING PSYCHOLOGIST shunt from a right posterior parietal approach is unchanged with tip in the region of the foramina [place]. Ventricular size is unchanged. Brain: No intracranial bleeds or mass effect. There is cerebral volume loss, with resultant ventricular and sulcal prominence. There are periventricular and deep white matter chronic small vessel ischemic changes. There is intracranial internal carotid artery atherosclerosis. Left cerebellar encephalomalacia consistent with prior surgical resection. Skull and face: Left calvarial craniotomy. Sinuses: Visualized sinuses and mastoids are clear. IMPRESSION: 1. No acute intracranial process. Stable interval exam. 2. Moderate atrophy and chronic microvascular ischemic changes. Dictated by: Yue Puga M.D. on 09/03/2024 at 13:57 Approved by: Yue Puga M.D. on 09/03/2024 at 13:59
--- NOTE | 2024-09-03 12:48 | ED_ITS ---
HPI - CPR General Chief Complaint: Cardiac Arrest/CPR Stated Complaint: Unconscious Time Seen by Provider: 09/03/24 12:43 Source: patient, EMS, RN notes reviewed and old records reviewed Mode of arrival: EMS History of Present Illness HPI narrative: 84-year-old female history of multiple prior brain masses resected with chronic memory loss who presents with loss of consciousness. There was report that patient had CPR in the field but per EMS she did not she did have a pulse upon arrival but was hypoxic in the 20-30%. Per EMS patient has been eating there is a possibility of aspiration event. Staff was around the corner in the other side of a wall but heard her came and found her with decreased mentation. She was breathing spontaneously but appeared to be agonal when EMS arrived. Blood glucose was normal in the field. They bag the patient for several minutes O2 sats improved and during transit patient has been, alert and interactive. Patient can tell me her name is in the rain she denies any pain, she when asked if she was short of breath indicates she was unsure. Denies any other nausea or vomiting or other symptoms. She was not able to tell me what she was doing prior to the event. Spoke with her daughter on the phone as patient was comfort measures she was agreeable to labs, imaging and asked we can also obtain a urine. She states she has had a history of seizures in the past does take Keppra. Related Data Home Medications Medication Instructions Recorded Confirmed acetaminophen 500 mg tablet 1,000 mg PO TID 01/15/22 08/05/23 aspirin 81 mg tablet,delayed 81 mg PO DAILY 01/15/22 08/05/23 release calcium 315 mg (as 1 tab PO BID 01/15/22 08/05/23 citrate)-vitamin D3 6.25 mcg (250 unit) tablet cholecalciferol (vitamin D3) 50 2,000 unit PO DAILY 01/15/22 08/05/23 mcg (2,000 unit) capsule (Vitamin D3) diltiazem HCl 120 mg 120 mg PO DAILY 01/15/22 08/05/23 capsule,extended release 24 hr levetiracetam 500 mg tablet 500 mg PO BID 01/15/22 08/05/23 quetiapine 25 mg tablet 25 mg PO BID 01/15/22 08/05/23 trazodone 50 mg tablet 50 mg PO BEDTIME 01/15/22 08/05/23 Previous Rx's Medication Instructions Recorded albuterol sulfate 90 mcg/actuation 1 inh inhalation Q4-6H PRN 01/15/22 breath activated powder inhaler shortness of breath or wheezing #1 ea levofloxacin 750 mg tablet 750 mg PO DAILY 7 days #7 tabs 09/03/24 Allergies Allergy/AdvReac Type Severity Reaction Status Date / Time morphine Allergy Verified 08/05/23 10:28 Penicillins Allergy Verified 08/05/23 10:28 Review of Systems Review of Systems ROS Unobtainable: All systems reviewed & are unremarkable except as noted in HPI and below Patient History Medical History 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 HEENT: Atraumatic, pupils are equal round reactive to light, patient has chronic facial droop, she has a asymmetry of her left eye to right which is chronic per EMS and family. Extraocular movements are intact, nares are clear, TMs are clear with no fluid, there is no conjunctival pallor. Throat is clear without any exudates, erythema, tonsillar enlargement or uvular deviation HEART: Regular rate and rhythm without murmur, clicks, rubs. Pulses are equal in upper and lower extremities LUNGS:Lungs clear to auscultation, no wheezes, rales, crackles, chest moves symmetrically, no tachypnea ABD:bowel sounds normal, soft, non-tender, no guarding, rebound, rigidity, no masses noted, no hepatosplenomegaly :No CVA tenderness MSCL: Non-tender, no muscle atrophy, muscles strength 5/5 upper and lower extremities, full range of motion. NEURO:CN 2-12 intact, sensation normal, patient has normal spontaneous movement bilateral upper extremities. Initial Vital Signs Initial Vital Signs: Vital Signs Temperature 97.2 F L 09/03/24 12:37 Pulse Rate 80 09/03/24 12:37 Respiratory Rate 14 09/03/24 12:37 Blood Pressure 111/65 09/03/24 12:37 Pulse Oximetry 99 09/03/24 12:37 Oxygen Delivery Method Non -Rebreather 09/03/24 12:37 Oxygen Flow Rate 15 09/03/24 12:37 Course Orders Ordered: ED Orders 09/03/24 12:43 Complete Blood Count AUTO DIFF Stat 09/03/24 12:45 Chest [XR chest 1V] Stat 09/03/24 12:46 Comprehensive Metabolic Panel Stat Lipase Stat Troponin & CK Cardiac Panel Stat EKG-12 Lead Stat 09/03/24 12:47 CT head/brain wo con Stat 09/03/24 13:00 Urine Culture Stat Urine Microscopic Stat Discontinued Medications Sodium Chloride (Normal Saline 0.9%) 500 mls @ 1,000 mls/hr IV BOLUS ONE Stop: 09/03/24 14:09 Last Infusion: 09/03/24 14:52 Dose: Infused Documented By: Admin: 09/03/24 13:45 Dose: 1,000 mls/hr Documented By: JOSE Levofloxacin (Levofloxacin 250 Mg Tablet) 750 mg PO NOW ONE Stop: 09/03/24 14:59 Last Admin: 09/03/24 15:49 Dose: 750 mg Documented By: RB Vital Signs Vital signs: Vital Signs - 8 hr 09/03/24 12:37 09/03/24 12:45 09/03/24 12:47 Temperature 97.2 F L Pulse Rate 80 79 79 Respiratory Rate 14 13 12 Blood Pressure 111/65 114/56 L Pulse Oximetry 99 97 94 Oxygen Delivery Method Non -Rebreather Nasal Cannula Oxygen Flow Rate 15 2 09/03/24 12:50 09/03/24 12:50 09/03/24 12:55 Temperature Pulse Rate 78 80 75 Respiratory Rate 16 18 17 Blood Pressure 100/51 L 107/55 L Pulse Oximetry 92 90 L Oxygen Delivery Method Oxygen Flow Rate 09/03/24 13:00 09/03/24 13:00 09/03/24 13:10 Temperature Pulse Rate 75 71 Respiratory Rate 15 13 Blood Pressure 97/54 L 97/54 L 94/53 L Pulse Oximetry 91 93 Oxygen Delivery Method Oxygen Flow Rate 09/03/24 13:26 09/03/24 13:30 09/03/24 13:34 Temperature Pulse Rate 66 66 64 Respiratory Rate 18 16 13 Blood Pressure 83/49 L 83/52 L 82/45 L Pulse Oximetry 93 93 93 Oxygen Delivery Method Oxygen Flow Rate 09/03/24 13:36 09/03/24 14:00 09/03/24 14:15 Temperature Pulse Rate 65 64 63 Respiratory Rate 18 22 13 Blood Pressure 84/50 L 98/57 L 96/52 L Pulse Oximetry 93 91 95 Oxygen Delivery Method Nasal Cannula Nasal Cannula Oxygen Flow Rate 2 0.5 09/03/24 14:30 09/03/24 14:45 Temperature Pulse Rate 66 79 Respiratory Rate 16 19 Blood Pressure 90/52 L 88/53 L Pulse Oximetry 97 97 Oxygen Delivery Method Nasal Cannula Oxygen Flow Rate 0.5 MDM - Cardiac Arrest/CPR Lab Data 09/03/24 12:43 09/03/24 12:46 Labs: Lab Results 09/03/24 09/03/24 09/03/24 Range/Units 12:43 12:46 13:00 WBC 9.6 (4.5-11.0) X10^3/uL RBC 3.55 L (4.0-5.2) X10^6/uL Hgb 11.3 L (12.0-16.0) g/dL Hct 33.8 L (36-46) % MCV 95.3 (80-100) fL MCH 31.9 (26-34) PG MCHC 33.5 (30-36) % RDW 14.7 (11.6-14.8) % Plt Count 379 (150-400) X10^3/uL Neut % (Auto) 73.9 (50-75) % Lymph % (Auto) 17.3 L (25-40) % [place] % (Auto) 7.7 (3-14) % Eos % (Auto) 0.4 L (2-4) % Baso % (Auto) 0.7 (0-2) % Neut # (Auto) 7100 H (8642-7592) /uL Lymph # (Auto) 1700 (5445-2490) /uL [place] # (Auto) 700 (0-900) /uL Eos # (Auto) 0 (0-450) /uL Baso # (Auto) 100 (0-100) /uL Sodium 140 (137-145) mmol/L Potassium 3.9 (3.4-5.1) mmol/L Chloride 98 (98-107) mmol/L Carbon Dioxide 33 H (22-32) mmol/L BUN 21 H (7-17) mg/dL Creatinine 0.49 L (0.52-1.04) mg/dL Estimated GFR > 60 (>60) mL/min BUN/Creatinine Ratio 42.9 H (6-22) Glucose 192 H (70-99) mg/dL Calcium 9.2 (8.4-10.2) mg/dL Total Bilirubin 0.2 (0.2-1.3) mg/dL AST 22 (14-36) IU/L ALT 19 (<35) IU/L Alkaline Phosphatase 85 (38-126) U/L Total Creatine Kinase 30 (30-135) U/L Troponin I < 0.012 (0.01-0.034) ng/mL Total Protein 7.1 (6.3-8.2) g/dL Albumin 3.9 (3.5-5.0) g/dL Globulin 3.2 (1.7-4.1) g/dL Albumin/Globulin Ratio 1.2 (1.0-2.8) Lipase 46 (23-300) U/L Urine RBC None seen (0-5/HPF) Urine WBC 0-1/hpf (0-5/HPF) Ur Squamous Epith Cells 0-1 /hpf (0-5/HPF) Urine Bacteria Many (>30) H (None) Ur Culture Indicated? Specimen cultured Vol Urine Centrifuged 10ml (spun) Urine Dip Bedside Urine Glucose Negative Bedside Urine Bilirubin - Negative Bedside Urine Ketone - Negative Urine Specific [place] 1.020 Bedside Urine Occult Blood - Negative Bedside Urine pH 6.0 Bedside Urine Protein +/- 15 Bedside Urine Urobilinogen 0.2 Bedside Urine Nitrite + Positive Bedside Urine Leukocytes - Negative Esterase ECG Data Attestation: I personally reviewed and interpreted this ECG as follows: Interpretation: Sinus rhythm first-degree AV block left axis deviation rate of 67 [place] 288 QRS 84 QTC of 407. MDM Narrative Medical decision making narrative: Labs white count 9.6 hemoglobin 7.3 priors were 12.2 platelets are 379. Electrolytes are appropriate CO2 is 33 BUN 21 creatinine is 0.49 glucose is 192 calcium is 9.2 troponins less than 0.012 with otherwise normal LFTs. EKG sinus rhythm first-degree AV block left axis deviation. Chest X ray, small pleural effusions, no evidence of aspiration Head CT shows no acute intracranial process stable interval exam moderate atrophy and chronic microvascular ischemic changes. Urine point of care is positive for nitrates, protein and microscopy shows many bacteria 1 white cell 1 squamous epithelial. Patient arrived on non-rebreather was in the upper 90%, weaned down to 2 L per nasal cannula we will attempt to continue to wean down. Patient continues to be alert, differential includes aspiration events versus seizure activity versus other. Patient was weaned off oxygen. Systolic blood pressure has been a little bit low she has been low intermittently in the past but not consistently. Did not receive a L bolus. Spoke with the daughter who is DPOA at 1245, patient has a POLST form that is comfort measures but she we would like further workup at this time. Spoke with patient and daughter at bedside. They feel comfortable with turn home. Poorly patient dropped down O2 at 1 point but was weaned off oxygen and has not continued to be hypoxic. Tolerated oral antibiotic here in the department without any issue. Both would like for her to return back to her shelter at this time. Patient is alert, she was fairly conversant although quite hard of hearing. We discussed possibly aspiration event versus seizure talking to daughter in the description of events that she received as well may has been more likely an aspiration event as she did have a PEG tube at 1 point but it was had that removed as she had improvement over time. Discussed return precautions all questions answered. Discharge Plan Departure Patient Disposition: Home Clinical Impression: UTI (urinary tract infection), Acute alteration in mental status Activity Restrictions/Additional Instructions: Your workup today does show possible bladder infection, oral antibiotics were sent to the pharmacy. Prescription was sent to [facility]. You received your 1st dose here today you did not have to take your next dose until tomorrow afternoon. Please return if you have any other new or concerning changes to mentation, breathing, chest pain, passing out, any vomiting or other new or concerning changes. Prescriptions: New levofloxacin 750 mg tablet 750 mg PO DAILY 7 Days Qty: 7 0RF No Action acetaminophen 500 mg tablet 1,000 mg PO TID quetiapine 25 mg tablet 25 mg PO BID aspirin 81 mg tablet,delayed release (DR/EC) 81 mg PO DAILY trazodone 50 mg tablet 50 mg PO BEDTIME levetiracetam 500 mg tablet 500 mg PO BID diltiazem HCl 120 mg capsule,extended release 24hr 120 mg PO DAILY cholecalciferol (vitamin D3) [Vitamin D3] 50 mcg (2,000 unit) capsule 2,000 unit PO DAILY calcium citrate-vitamin D3 315 mg-6.25 mcg (250 unit) tablet 1 tab PO BID albuterol sulfate 90 mcg/actuation aerosol powdr breath activated 1 inh inhalation Q4-6H PRN (Reason: shortness of breath or wheezing) Qty: 1 0RF Referrals: Miscellaneous,Doctor, MD [Primary Care Provider] - Stand Alone Forms: Patient Portal/API/Survey
[2024-09-03 13:02] LABS: Add Manual Diff / Slide Review NO; Basophils Absolute Auto 100 /uL (0-100); Basophils Percent Auto 0.7 % (0-2); Eosinophils Absolute Auto 0 /uL (0-450); Eosinophils Percent Auto 0.4 % (2-4); Hematocrit 33.8 % (36-46); Hemoglobin 11.3 g/dL (12.0-16.0); Lymphocytes Absolute Auto 1700 /uL (1100-4500); Lymphocytes Percent Auto 17.3 % (25-40); Mean Corpuscular HGB Conc 33.5 % (30-36); Mean Corpuscular Hemoglobin 31.9 PG (26-34); Mean Corpuscular Volume 95.3 fL (80-100); Monocytes Absolute Auto 700 /uL (0-900); Monocytes Percent Auto 7.7 % (3-14); Neutrophils Absolute Auto 7100 /uL (1500-7000); Neutrophils Percent Auto 73.9 % (50-75); Platelet Count 379 X10^3/uL (150-400); Red Blood Cell Count 3.55 X10^6/uL (4.0-5.2); Red Cell Distribution Width 14.7 % (11.6-14.8); White Blood Cell Count 9.6 X10^3/uL (4.5-11.0)
[2024-09-03 13:13] LABS: Alanine Aminotransferase 19 IU/L (<35); Albumin 3.9 g/dL (3.5-5.0); Albumin Globulin Ratio 1.2 (1.0-2.8); Alkaline Phosphatase 85 U/L (38-126); Aspartate Aminotransferase 22 IU/L (14-36); BUN Creatinine Ratio 42.9 (6-22); Bilirubin Total 0.2 mg/dL (0.2-1.3); Blood Urea Nitrogen 21 mg/dL (7-17); Calcium 9.2 mg/dL (8.4-10.2); Carbon Dioxide 33 mmol/L (22-32); Chloride 98 mmol/L (98-107); Creatine Kinase 30 U/L (30-135); Estimated Glomerular Filt Rate > 60 mL/min (>60); Globulin 3.2 g/dL (1.7-4.1); Glucose 192 mg/dL (70-99); HEMOLYSIS < 15 (0-50); Lipase 46 U/L (23-300); Potassium 3.9 mmol/L (3.4-5.1); Sodium 140 mmol/L (137-145); Total Protein 7.1 g/dL (6.3-8.2)
[2024-09-03 13:17] LABS: Urine Volume 10mL (spun)
[2024-09-03 13:18] LABS: Bacteria Urine Many (>30); RBC Urine None Seen (0-5/HPF); WBC Urine 0-1/HPF (0-5/HPF)
[2024-09-03 13:21] LABS: Culture Indicated Urine Specimen Cultured; Squamous Epithelial Cell Urine 0-1 /HPF (0-5/HPF)
[2024-09-03 13:25] LABS: Troponin I < 0.012 ng/mL (0.01-0.034)
[2024-09-03] MEDS: SODIUM CHLORIDE 0.9% 500 ML 1000 ML IV (13:45)
--- NOTE | 2024-09-03 15:01 | EKG_ITS ---
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
[2024-09-03] MEDS: levoFLOXacin 250 MG TABLET 750 MG PO (15:49)
--- NOTE | 2024-09-03 16:01 | RT ---
Called to ER-1 for ALOC/Bagging pt from the field. Upon arrival pt was alert, on 15lpm nrb mask and no distress noted. Suction and bag mask unit on and functional at [facility]. notifed me of pt status. DNR/DNI. Pt titrated down to 2 lpm nc, teresita well Sao2 98%. Released by Dr. Burden
== END 2024-09-03 16:01 | disposition home or self-care (01) ==
PROVIDERS: Emergency Provider Emergency Medicine
DX: N39.0 Urinary tract infection, site not specified (principal); R41.82 Altered mental status, unspecified
CPT/HCPCS: 36415; 70450; 71045; 80053; 81003; 81015; 82550; 83690; 84484; 85025; 87077; 87086; 87186; 93005; 96360; 99285

== ENCOUNTER 2024-10-04 15:18 | Emergency (ER) | payer MEDICARE, OTHER, SELFPAY ==
[2024-10-04 15:36] VITALS: BP 112/56; PULSE 68; RESP 18; TEMP 36.1; O2SAT 99; BMI 11.5
--- NOTE | 2024-10-04 15:45 | DI.RAD.S_ITS ---
PROCEDURE: XR WRIST LT MIN 3V INDICATIONS: fall, pain TECHNIQUE: 3 views of the wrist were acquired. COMPARISON: None. FINDINGS: Bones: No acute fracture or dislocation in the wrist. Radial shaft fracture is partially included at the margins of the field of view on lateral projection, better seen on forearm radiograph. Chronic healed fracture deformity of the distal ulna. Degenerative changes are seen throughout the wrist and the included portions of the fingers. Generalized osteopenia. No suspicious bony lesions. Soft tissues: No suspicious soft tissue calcifications. Nonspecific soft tissue edema. IMPRESSION: No acute osseous abnormality in the wrist. Approved by: Jorge Vanegas M.D. on 10/04/2024 at 17:22
--- NOTE | 2024-10-04 15:45 | DI.RAD.S_ITS ---
PROCEDURE: XR FOREARM LT 2V INDICATIONS: fall, pain TECHNIQUE: 2 views of the forearm were acquired. COMPARISON: None. FINDINGS: Bones: Mildly displaced midshaft fracture of the radius. Postsurgical changes are seen from prior elbow arthroplasty. Chronic healed fracture deformity of the distal radius. Generalized osteopenia. Degenerative changes are seen in the wrist. Suboptimal positioning on lateral view mildly limits evaluation. Soft tissues: No suspicious soft tissue calcifications or masses. IMPRESSION: Mildly displaced midshaft fracture of the radius. Approved by: Jorge Vanegas M.D. on 10/04/2024 at 17:20
--- NOTE | 2024-10-04 15:56 | PC.WOUNDPHOT ---
Spoke to patients RACHELA and daughter Flavio who gave me patient's caregiver to call for picker operator when discharged (Phylicia Smith [phone]). Is aware of fall. States patient's left side is weak, hx of brain tumor resections. Unavailable to be with patient today but available by phone if necessary.
--- NOTE | 2024-10-04 22:00 | PC.NURSE ---
skin tears to the back of the left hand cleaned with NS and steri strips with bacitracin applied then non-adhesive dressing applied and the hand was wrapped with rell
--- NOTE | 2024-10-04 22:15 | ED.GENADULT ---
HPI - General Adult General Chief complaint: Extremity Injury, Upper Stated complaint: Laceration Time Seen by Provider: 10/04/24 18:11 Mode of arrival: EMS History of Present Illness HPI narrative: 84-year-old woman with a history of multiple prior brain masses, has a history of a seizure, was seen in the emergency department exactly a month ago with the out of hospital cardiac arrest and altered mental status presents today after a fall with left arm pain and skin tears to the dorsum of the left hand. Details of the fall are difficult to obtain, patient is confused and has significant dysarthria at baseline. Per medics, the patient fell 3 days ago. Related Data Home Medications ?Medication ?Instructions ?Recorded ?Confirmed acetaminophen 500 mg tablet 1,000 mg PO TID 01/15/22 08/05/23 aspirin 81 mg tablet,delayed 81 mg PO DAILY 01/15/22 08/05/23 release calcium 315 mg (as 1 tab PO BID 01/15/22 08/05/23 citrate)-vitamin D3 6.25 mcg (250 unit) tablet cholecalciferol (vitamin D3) 50 2,000 unit PO DAILY 01/15/22 08/05/23 mcg (2,000 unit) capsule (Vitamin D3) diltiazem HCl 120 mg 120 mg PO DAILY 01/15/22 08/05/23 capsule,extended release 24 hr levetiracetam 500 mg tablet 500 mg PO BID 01/15/22 08/05/23 quetiapine 25 mg tablet 25 mg PO BID 01/15/22 08/05/23 trazodone 50 mg tablet 50 mg PO BEDTIME 01/15/22 08/05/23 Previous Rx's ?Medication ?Instructions ?Recorded albuterol sulfate 90 mcg/actuation 1 inh inhalation Q4-6H PRN 01/15/22 breath activated powder inhaler shortness of breath or wheezing #1 ea Allergies Allergy/AdvReac Type Severity Reaction Status Date / Time morphine Allergy Verified 10/04/24 15:36 Penicillins Allergy Verified 10/04/24 15:36 Review of Systems Review of Systems Narrative: Pertinent positive and negative findings as per HPI Patient History Medical History 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 Hearing loss History of brain tumor Malnutrition Surgical History History of brain surgery Social History household members: caregiver and other alcohol intake: current alcohol intake frequency: 0-2 drinks per day Exam Initial Vital Signs Initial Vital Signs: Vital Signs Temperature 97.0 F L 10/04/24 15:36 Pulse Rate 68 10/04/24 15:36 Respiratory Rate 18 10/04/24 15:36 Blood Pressure 112/56 L 10/04/24 15:36 Pulse Oximetry 99 10/04/24 15:36 Oxygen Delivery Method Room Air 10/04/24 15:36 General: Frail, chronically ill-appearing, blind in the left eye with left facial droop and scarring at baseline HEENT: Moist mucous membranes, normal sclera with reactive pupils, Respiratory: Full and symmetrical air movement Cardiac: Regular rate and rhythm no murmurs no bruits Abdomen: Soft, nontender, no rebound or guarding, no flank pain Skin: Quite thin, multiple bruises in various stages of healing. She has 2 superficial skin tears to the dorsum of the left hand Neurologic: Grossly neurologically intact with no obvious asymmetries or abnormalities Extremities: Some tenderness and bruising the mid forearm on the left side. She is not tender with complete extension of the left elbow. No tenderness with manipulation of the left wrist. Psych: Cooperative, cognitive deficits appreciated Course Orders Ordered: ED Orders 10/04/24 15:45 XR forearm LT 2V Stat XR wrist LT min 3V Stat Discontinued Medications Bacitracin (Bacitracin 28 Gm Oint) 1 applic TOP NOW ONE Stop: 10/04/24 21:47 Vital Signs Vital signs: Vital Signs - 8 hr 10/04/24 15:36 Temperature 97.0 F L Pulse Rate 68 Respiratory Rate 18 Blood Pressure 112/56 L Pulse Oximetry 99 Oxygen Delivery Method Room Air Medical Decision Making MDM Narrative Medical decision making narrative: 84-year-old woman with prior brain masses, seizures, hypertension cardiac arrest 1 month ago apparently fell at home 3 days ago injured her left forearm has a displaced midshaft fracture of the left radius. No wrist involvement. Small skin tears over the dorsum of the hand. Skin tears are cleaned, dressings applied. A long-arm posterior splint is placed on the left side along with a sling. She is neurovascularly intact pre and post placement of the cast and the sling. She is not complaining of significant pain at this time She will need orthopedic follow up for definitive treatment of this midshaft radial fracture on the left side. Instructions will be given clearly in writing and we will help her return to home. At this point there is no evidence of additional injury and no indication for further workup or hospitalization Discharge Plan Departure Patient Disposition: Home Clinical Impression: Forearm fracture Qualifiers: Encounter type: initial encounter Fracture type: closed Laterality: left Qualified Code(s): S52.92XA - Unspecified fracture of left forearm, initial encounter for closed fracture Instructions: DI for Forearm Fracture Activity Restrictions/Additional Instructions: Thank you for coming in today With your fall 3 days ago, you broke 1 of the bones in your forearm on the left side. It is right under where all the bruising is. It does look like this will heal without surgery. You have been placed in a long-arm splint in the emergency department. You did have 2 skin tears on the back of your hand on the left side. We cleaned those and put appropriate dressings on. There was no indication that they are infected at this time You will need to be seen in an orthopedic surgeon's office for definitive treatment of this fracture. You are welcome to call a clinic closer to home if you prefer. I would recommend [facility] at [phone]. Please let them know that you broke her left arm, was seen in the emergency department and need to be seen for a cast. Use the sling as needed to help support the cast Use Tylenol as needed for pain If you find that you are getting worse or have new symptoms, please return to the ER Prescriptions: No Action acetaminophen 500 mg tablet 1,000 mg PO TID quetiapine 25 mg tablet 25 mg PO BID aspirin 81 mg tablet,delayed release (DR/EC) 81 mg PO DAILY trazodone 50 mg tablet 50 mg PO BEDTIME levetiracetam 500 mg tablet 500 mg PO BID diltiazem HCl 120 mg capsule,extended release 24hr 120 mg PO DAILY cholecalciferol (vitamin D3) [Vitamin D3] 50 mcg (2,000 unit) capsule 2,000 unit PO DAILY calcium citrate-vitamin D3 315 mg-6.25 mcg (250 unit) tablet 1 tab PO BID albuterol sulfate 90 mcg/actuation aerosol powdr breath activated 1 inh inhalation Q4-6H PRN (Reason: shortness of breath or wheezing) Qty: 1 0RF Referrals: Miscellaneous,Doctor, MD [Primary Care Provider, Medical] Stand Alone Forms: Patient Portal/API
[2024-10-04] MEDS: BACITRACIN 28 GM OINT 1 APPLIC TOP (22:36)
[2024-10-04 22:43] VITALS: BP 110/54; PULSE 66; RESP 16; O2SAT 98
== END 2024-10-04 22:47 | disposition home or self-care (01) ==
PROVIDERS: Emergency Provider Emergency Medicine
DX: S52.92XA Unspecified fracture of left forearm, initial encounter for closed fracture (principal); W18.30XA Fall on same level, unspecified, initial encounter; Z86.74 Personal history of sudden cardiac arrest
CPT/HCPCS: 29105; 73090; 73110; 99282

== ENCOUNTER → 2024-10-06 14:18 | Outpatient (CLI) | payer MEDICARE, OTHER, SELFPAY ==
--- NOTE | 2024-10-06 14:20 | DI.US.S_ITS ---
PROCEDURE: US PERIPH VENOUS LOW EXTREM LT INDICATIONS: DVT RO TECHNIQUE: Real-time imaging, as well as color and pulse Doppler interrogation, were performed of the lower extremity deep veins from the inguinal ligament to the popliteal fossa, with documentation of the visualized calf veins. COMPARISON: None. FINDINGS: The common femoral, femoral, popliteal, and the visualized calf veins are normally compressible, and free of intraluminal thrombus. Color and pulse Doppler demonstrate normal phasic intraluminal flow. There is normal augmentation response to distal compression maneuver. IMPRESSION: No findings of lower extremity deep venous thrombosis. Dictated by: Yue Puga M.D. on 10/06/2024 at 18:10 Approved by: Yue Puga M.D. on 10/06/2024 at 18:10
== END ==
PROVIDERS: Referring Provider Internal Medicine; Visit Provider Internal Medicine
DX: M79.89 Other specified soft tissue disorders (principal)
CPT/HCPCS: 93971

== ENCOUNTER → 2024-10-19 15:07 | Outpatient (CLI) | payer MEDICARE, OTHER, SELFPAY ==
--- NOTE | 2024-10-19 15:13 | DI.RAD.S_ITS ---
PROCEDURE: XR ANKLE LT MIN 3V INDICATIONS: LT ANKLE PAIN TECHNIQUE: 3 views of the ankle were acquired. COMPARISON: [facility], CR, XR FEMUR LT MIN 2V, 07/03/2024, 19:56. FINDINGS: Bones: Generalized decreased osseous mineralization noted. Distal tibia and fibular old fracture deformities noted supported by intramedullary summer and cortical sideplate with screws. No evidence of hardware failure or loosening. Appropriate bridging callus. Diffuse small vessel atherosclerotic vascular calcification. Ankle mortise is maintained. Instrumented old healed calcaneal fracture supported by orthopedic screws. Superior screw has failed distally with interval gap between fragments. Instrumented tarsometatarsal 1st and 2nd arthrodesis noted as well Soft tissues: No tibiotalar joint effusion. Achilles tendon appears normal. IMPRESSION: Instrumented old healed calcaneal fracture noted with failure of the upper screw with a small gap between fragments. Instrumented distal tibial and fibular old healed fractures Osteopenia. Approved by: Blu Howard M.D. on 10/19/2024 at 17:12
== END ==
PROVIDERS: Referring Provider Family Medicine; Visit Provider Family Medicine
DX: T84.213A Breakdown (mechanical) of internal fixation device of bones of foot and toes, initial encounter (principal); Z98.890 Other specified postprocedural states; M85.872 Other specified disorders of bone density and structure, left ankle and foot
CPT/HCPCS: 73610

== ENCOUNTER 2024-10-21 21:25 | Emergency (ER) | payer MEDICARE, OTHER, SELFPAY ==
--- NOTE | 2024-10-21 21:32 | ED_ITS ---
HPI - General Adult <Isma Kang MD - Last Filed: 10/23/24 05:06> General Chief complaint: Altered Mental Status Stated complaint: gen. 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 No new fall noted since recent left upper extremity fracture. No recent change in medications. No shaking seizure- like activity. No fevers or chills. Daughter was driving here shortly after patient arrival by EMS, daughter stated she is medical power of claims attorney, we would like workup for reversible causes. We discussed specific testing and the daughter we would like CT head imaging, as well as EKG, chest x-ray, labs, urinalysis. Related Data Home Medications ?Medication ?Instructions ?Recorded ?Confirmed acetaminophen 500 mg tablet 1,000 mg PO TID 01/15/22 0 10/14/24 aspirin 81 mg tablet,delayed 81 mg PO DAILY 01/15/22 0 10/14/24 release calcium 315 mg (as 1 tab PO BID 01/15/22 citrate)-vitamin D3 6.25 mcg (250 unit) tablet cholecalciferol (vitamin D3) 50 2,000 unit PO DAILY 10/14/24 mcg (2,000 unit) capsule (Vitamin D3) diltiazem HCl 120 mg 120 mg PO DAILY 01/15/22 capsule,extended release 24 hr levetiracetam 500 mg tablet 500 mg PO BID 01/15/22 quetiapine 25 mg tablet 25 mg PO BID 01/15/22 trazodone 50 mg tablet 50 mg PO BEDTIME 01/15/22 Previous Rx's ?Medication ?Instructions ?Recorded albuterol sulfate 90 mcg/actuation 1 inh inhalation Q4 -6H PRN 01/15/22 breath activated powder inhaler shortness of breath or wheezing #1 ea Allergies Allergy/AdvReac Type Severity Reaction Status Date / Time morphine Allergy Verified 10/14/24 15:01 Penicillins Allergy Verified 10/14/24 15:01 Patient History <Isma Kang MD - Last Filed: 10/23/24 05:06> Medical History 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 HEAD: Atraumatic. Normocephalic. EYES: Left eyelid open, sutured to narrow exposure to ocular him, no prosthetic eye. ENT: Nose without bleeding, purulent drainage. Oropharynx appears quite dry. 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 NECK: Trachea midline. Non tender CARDIOVASCULAR: Regular rate and rhythm without murmurs, gallops, or rubs. RESPIRATORY: Clear to auscultation. Breath sounds equal bilaterally. No wheezes, rales, or rhonchi. GASTROINTESTINAL: Abdomen soft nondistended. No wincing on palpation. Bowel tones unremarkable without rushes or tinkles. EXTREMITIES: No edema or joint tenderness. Thin cachectic extremities. Left arm in short-arm cast, good perfusion fingertips. Cast seems in good condition. BACK: Nontender without deformity or crepitance. No flank tenderness. NEURO: AOx3. Motor functions grossly nonfocal. SKIN: No rash or erythema of visible areas Initial Vital Signs Initial Vital Signs: Vital Signs Temperature 93.7 F L 10/21/24 21:34 Pulse Rate 90 10/21/24 21:34 Respiratory Rate 8 L 10/21/24 21:34 Blood Pressure 105/43 L 10/21/24 21:34 Pulse Oximetry 90 L 10/21/24 21:34 Oxygen Delivery Method Room Air 10/21/24 21:34 <Vidya Burden DO - Last Filed: 10/22/24 18:48> Initial Vital Signs Initial Vital Signs: Vital Signs Temperature 93.7 F L 10/21/24 21:34 Pulse Rate 90 10/21/24 21:34 Respiratory Rate 8 L 10/21/24 21:34 Blood Pressure 105/43 L 10/21/24 21:34 Pulse Oximetry 90 L 10/21/24 21:34 Oxygen Delivery Method Room Air 10/21/24 21:34 Course <Isma Kang MD - Last Filed: 10/23/24 05:06> Orders Ordered: Discontinued Medications Diltiazem HCl (Diltiazem Cd 120 Mg Cap) 120 mg PO NOW ONE Stop: 10/22/24 09:25 Last Admin: 10/22/24 10:09 Dose: 120 mg Documented By: RB Sodium Chloride (Normal Saline 0.9%) 1,000 mls @ 1,000 mls/hr IV BOLUS ONE Stop: 10/22/24 02:10 Last Infusion: 10/22/24 03:30 Dose: Infused Documented By: Admin: 10/22/24 01:21 Dose: 500 mls/hr Documented By: AB Sodium Chloride (Normal Saline 0.9%) 1,000 mls @ 1,000 mls/hr IV BOLUS ONE Stop: 10/22/24 05:10 Last Infusion: 10/22/24 05:11 Dose: Infused Documented By: Admin: 10/22/24 04:11 Dose: 1,000 mls/hr Documented By: AB Sodium Chloride (Normal Saline 0.9%) 1,000 mls @ 250 mls/hr IV CONT DANIELA Last Infusion: 10/22/24 10:17 Dose: Infused Documented By: Admin: 10/22/24 05:27 Dose: 250 mls/hr Documented By: AB POTASSIUM CHLORIDE IN WATER (Potassium Cl 10 Meq/100 Ml Faye) 10 meq in 100 mls @ 100 mls/hr IV Q1H DANIELA Stop: 10/22/24 06:44 Last Infusion: 10/22/24 06:38 Dose: Infused Documented By: Admin: 10/22/24 05:44 Dose: 100 mls/hr Documented By: AB Levetiracetam (Levetiracetam 250 Mg Tablet) 500 mg PO NOW ONE Stop: 10/22/24 09:25 Last Admin: 10/22/24 10:09 Dose: 500 mg Documented By: RB Vital Signs Vital signs: Vital Signs - 8 hr 10/22/24 11:00 10/22/24 11:00 10/22/24 11:30 Pulse Rate 58 L 71 Respiratory Rate 22 13 Blood Pressure 134/55 L Pulse Oximetry 92 94 10/22/24 11:30 Pulse Rate Respiratory Rate Blood Pressure 121/60 Pulse Oximetry <Vidya Burden DO - Last Filed: 10/22/24 18:48> Orders Ordered: Discontinued Medications Diltiazem HCl (Diltiazem Cd 120 Mg Cap) 120 mg PO NOW ONE Stop: 10/22/24 09:25 Last Admin: 10/22/24 10:09 Dose: 120 mg Documented By: RB Sodium Chloride (Normal Saline 0.9%) 1,000 mls @ 1,000 mls/hr IV BOLUS ONE Stop: 10/22/24 02:10 Last Infusion: 10/22/24 03:30 Dose: Infused Documented By: Admin: 10/22/24 01:21 Dose: 500 mls/hr Documented By: AB Sodium Chloride (Normal Saline 0.9%) 1,000 mls @ 1,000 mls/hr IV BOLUS ONE Stop: 10/22/24 05:10 Last Infusion: 10/22/24 05:11 Dose: Infused Documented By: Admin: 10/22/24 04:11 Dose: 1,000 mls/hr Documented By: AB Sodium Chloride (Normal Saline 0.9%) 1,000 mls @ 250 mls/hr IV CONT DANIELA Last Infusion: 10/22/24 10:17 Dose: Infused Documented By: Admin: 10/22/24 05:27 Dose: 250 mls/hr Documented By: AB POTASSIUM CHLORIDE IN WATER (Potassium Cl 10 Meq/100 Ml Faye) 10 meq in 100 mls @ 100 mls/hr IV Q1H DANIELA Stop: 10/22/24 06:44 Last Infusion: 10/22/24 06:38 Dose: Infused Documented By: Admin: 10/22/24 05:44 Dose: 100 mls/hr Documented By: AB Levetiracetam (Levetiracetam 250 Mg Tablet) 500 mg PO NOW ONE Stop: 10/22/24 09:25 Last Admin: 10/22/24 10:09 Dose: 500 mg Documented By: RB Vital Signs Vital signs: Vital Signs - 8 hr 10/22/24 11:00 10/22/24 11:00 10/22/24 11:30 Pulse Rate 58 L 71 Respiratory Rate 22 13 Blood Pressure 134/55 L Pulse Oximetry 92 94 10/22/24 11:30 Pulse Rate Respiratory Rate Blood Pressure 121/60 Pulse Oximetry Medical Decision Making <Isma Kang MD - Last Filed: 10/23/24 05:06> Lab Data Lab results reviewed: Yes I reviewed the patient's lab results. Lab results narrative: White blood cell count 5200, hemoglobin 11.3, platelets adequate. Glucose 114. Normal renal function. Serum CO2 38 elevated. Potassium 3.9 normal. Sodium 136 mild decreased. Liver functions normal. Lipase normal. Lactate 1.1 normal. BNP not elevated. 10/21/24 22:18 10/21/24 22:18 Labs: Lab Results 10/21/24 10/21/24 10/22/24 Range/Units 22:18 Unknown 08:16 WBC 5.2 (4.5-11.0) X10^3/uL RBC 3.73 L (4.0-5.2) X10^6/uL Hgb 11.3 L (12.0-16.0) g/dL Hct 34.4 L (36-46) % MCV 92.4 (80-100) fL MCH 30.4 (26-34) PG MCHC 32.9 (30-36) % RDW 16.0 H (11.6-14.8) % Plt Count 294 (150-400) X10^3/uL Neut % (Auto) 67.8 (50-75) % Lymph % (Auto) 19.3 L (25-40) % [place] % (Auto) 8.7 (3-14) % Eos % (Auto) 3.2 (2-4) % Baso % (Auto) 1.0 (0-2) % Neut # (Auto) 3500 (1998-8932) /uL Lymph # (Auto) 1000 L (2110-4953) /uL [place] # (Auto) 500 (0-900) /uL Eos # (Auto) 200 (0-450) /uL Baso # (Auto) 100 (0-100) /uL PT Cancelled INR Cancelled APTT Cancelled Sodium 136 L (137-145) mmol/L Potassium 3.9 (3.4-5.1) mmol/L Chloride 97 L (98-107) mmol/L Carbon Dioxide 38 H (22-32) mmol/L BUN 13 (7-17) mg/dL Creatinine 0.52 (0.52-1.04) mg/dL Estimated GFR > 60 (>60) mL/min BUN/Creatinine Ratio 25.0 H (6-22) Glucose 114 H (70-99) mg/dL Lactate 1.1 (0.7-2.1) mmol/L Calcium 8.8 (8.4-10.2) mg/dL Magnesium 1.8 (1.6-2.3) mg/dL Total Bilirubin 0.3 (0.2-1.3) mg/dL AST 18 (14-36) IU/L ALT 12 (<35) IU/L Alkaline Phosphatase 92 (38-126) U/L Total Creatine Kinase 25 L (30-135) U/L Troponin I < 0.012 (0.01-0.034) ng/mL NT-Pro-B Natriuret Pep 348 (<450) pg/mL Total Protein 6.6 (6.3-8.2) g/dL Albumin 3.3 L (3.5-5.0) g/dL Globulin 3.3 (1.7-4.1) g/dL Albumin/Globulin Ratio 1.0 (1.0-2.8) Lipase 38 (23-300) U/L Urine Color Yellow Urine Appearance Clear Urine pH 6.0 (4.5-8.0) Ur Specific [place] 1.020 (1.000-1.035) Urine Protein Negative (Negative) Urine Glucose (UA) Negative (Negative) g/dL Urine Ketones Negative (NEGATIVE) Urine Occult Blood Negative (Negative) Urine Nitrate Negative (Negative) Urine Bilirubin Negative (NEGATIVE) Urine Urobilinogen 1.0 (0.2) E.U./dL Ur Leukocyte Esterase Negative (NEGATIVE) Urine RBC None seen (0-5/HPF) Urine WBC 0-1/hpf (0-5/HPF) Ur Squamous Epith Cells 0-1 /hpf (0-5/HPF) Urine Bacteria None seen (None) Ur Culture Indicated? Cult not indicated Vol Urine Centrifuged 10ml (spun) Imaging Data Chest x-ray: Radiologist's Impression: [address] [address] XRay Report Signed Patient: Tari Olson MR#: [id number] : 1940 Acct:[id number] Age/Sex: 84 / F Date of Service: 10/21/24 Loc: ED Accession Number: [id number] Procedure: XR chest 1V Ordering Provider: Isma Kang MD PROCEDURE: XR CHEST 1V INDICATIONS: weakness TECHNIQUE: One view of the chest was acquired. COMPARISON: [facility], , XR CHEST 1V, 09/03/2024, 12:56. FINDINGS: Surgical changes and devices: None. Lungs and pleura: Lungs are clear. No pleural effusions or pneumothorax. Mediastinum: Mediastinal contours appear normal. Heart size is normal. Bones and chest wall: No suspicious bony lesions. Overlying soft tissues appear unremarkable. Chronic left proximal humerus deformity. IMPRESSION: No acute cardiopulmonary abnormality is seen. Approved by: Matilde Parker M.D.,Ph.D. on 10/21/2024 at 22:47 CT scan - head: Radiologist's Impression: [address] [address] [address] Scan Report Signed Patient: Tari Olson MR#: [id number] : 1940 Acct:[id number] Age/Sex: 84 / F Date of Service: 10/21/24 Loc: ED Accession Number: [id number] Procedure: CT head/brain wo con Ordering Provider: Isma Kang MD PROCEDURE: CT HEAD/BRAIN WO CON INDICATIONS: brain tumor, [employer] shunt, weakness TECHNIQUE: Noncontrast 4.5 mm thick angled axial sections acquired from the foramen magnum to the vertex, with coronal and sagittal reformats. For radiation dose reduction, the following was used: automated exposure control, adjustment of mA and/or kV according to patient size. COMPARISON: [facility], CT, CT HEAD/BRAIN WO CON, 09/03/2024, 13:21. FINDINGS: Image quality: Diagnostic. CSF spaces: Stable positioning of right posterior parietal approach [employer] shunt with tip in the region of the foramen of [place]. Stable low attenuating subdural collections seen bilaterally. Basal cisterns are patent. Brain: No intracranial bleeds or mass effect. There is cerebral volume loss, with resultant ventricular and sulcal prominence. There are periventricular and deep white matter chronic small vessel ischemic changes. There is intracranial internal carotid artery atherosclerosis. Stable left cerebellar encephalomalacia consistent with postsurgical resection. Stable right frontal encephalomalacia. Skull and face: Left calvarial craniotomy. Calvarium and visualized facial bones appear intact, without suspicious lesions. Sinuses: Visualized sinuses and mastoids are clear. IMPRESSION: No acute intracranial pathology. Stable chronic findings as above. Approved by: Matilde Parker M.D.,Ph.D. on 10/21/2024 at 22:20 ECG Data Attestation: I personally reviewed and interpreted this ECG as follows: Interpretation: 2140, sinus bradycardia with first-degree AV block, rate 48. MN 286, QRS 90, QTC 409. No obvious ST segment elevation or depression changes. MDM Narrative Medical decision making narrative: 84-year-old female with history of brain cancer and [employer] shunt, DNR/DNI code status, pulsed comfort measures, daughter medical power of claims attorney is driving here not yet arrived but phone call I had, we would like evaluation for reversible causes. Specifically daughter prefers we do CT brain imaging, EKG, chest x-ray, labs, urinalysis for now. Await her arrival for further direction of care, and discussion of testing results. CT head no acute changes. See radiology report. EKG sinus rhythm no acute changes obvious. Chest x-ray no acute changes. See radiology report. Lab data: White blood cell count 5200, hemoglobin 11.3, platelets adequate. Glucose 114. Normal renal function. Serum CO2 38 elevated. Potassium 3.9 normal. Sodium 136 mild decreased. Liver functions normal. Lipase normal. Lactate 1.1 normal. BNP not elevated. Urinalysis still pending, no urine output after 1st IV 1 L saline bolus, repeat saline bolus. 0600, Still no urine output with Purewick for collection. Bladder scan by nursing still shows small volume. Will give 3rd liter saline bolus, add potassium. UA volume yet to be collected. 0700, signed out to Dr Burden. 10/22/24 Dr. Burden: Patient signed out to myself. Awaiting urine sample for evaluation for AMS. Reviewed patient's workup. Labs show chronic anemia 11.3 normal white count and platelets, CO2 is 38 sodium is 136 chloride 97 otherwise normal electrolytes BUN creatinine glucose of 114 lactate 1 1 total CK was 25 troponin BNP were normal. Patient had non-con head CT which shows no acute change. Chest x-ray is negative. Patient appear to be clinically dry seeming 1/3 L of fluids as well as some potassium supplementation from overnight physician has not made any urine up to this point. Patient has been bradycardic but appears to be consistent with the patient's priors. Patient was DNR/DNI limited interventions, sent for decreased mentation and activity. Urinalysis shows 1 white cell 1 squamous no bacteria no nitrates no leuks. It was otherwise negative Seen and evaluated by myself. Spoke with family at bedside. Patient does have decreased mentation minimally interactive. He was noted to be bradycardic but seems pretty consistent with her prior visits. Spoke with daughter at bedside she expressed some interest in hospice we discussed if she would go back to the facility daughter is going to reach out to the facility. Daughter returned states facilities comfortable with her coming back. I think this would be appropriate especially if she was showing interested in hospice and does not wish for additional workup at this time. Discussed potentially end of life but did not find a clear source of her changes in mentation this time. We will see if MICROARRAY SPECIALIST available to meet with her discuss hospice as she was asking about that resource. MICROARRAY SPECIALIST did meet with the patient's daughter. Resources for hospice were shared. Patient awake, requesting breakfast and a pizza. Given oral am medication. <Vidya Burden, DO - Last Filed: 10/22/24 18:48> Lab Data Labs: Lab Results 10/21/24 10/21/24 10/22/24 Range/Units 22:18 Unknown 08:16 WBC 5.2 (4.5-11.0) X10^3/uL RBC 3.73 L (4.0-5.2) X10^6/uL Hgb 11.3 L (12.0-16.0) g/dL Hct 34.4 L (36-46) % MCV 92.4 (80-100) fL MCH 30.4 (26-34) PG MCHC 32.9 (30-36) % RDW 16.0 H (11.6-14.8) % Plt Count 294 (150-400) X10^3/uL Neut % (Auto) 67.8 (50-75) % Lymph % (Auto) 19.3 L (25-40) % [place] % (Auto) 8.7 (3-14) % Eos % (Auto) 3.2 (2-4) % Baso % (Auto) 1.0 (0-2) % Neut # (Auto) 3500 (7413-9637) /uL Lymph # (Auto) 1000 L (1883-4757) /uL [place] # (Auto) 500 (0-900) /uL Eos # (Auto) 200 (0-450) /uL Baso # (Auto) 100 (0-100) /uL PT Cancelled INR Cancelled APTT Cancelled Sodium 136 L (137-145) mmol/L Potassium 3.9 (3.4-5.1) mmol/L Chloride 97 L (98-107) mmol/L Carbon Dioxide 38 H (22-32) mmol/L BUN 13 (7-17) mg/dL Creatinine 0.52 (0.52-1.04) mg/dL Estimated GFR > 60 (>60) mL/min BUN/Creatinine Ratio 25.0 H (6-22) Glucose 114 H (70-99) mg/dL Lactate 1.1 (0.7-2.1) mmol/L Calcium 8.8 (8.4-10.2) mg/dL Magnesium 1.8 (1.6-2.3) mg/dL Total Bilirubin 0.3 (0.2-1.3) mg/dL AST 18 (14-36) IU/L ALT 12 (<35) IU/L Alkaline Phosphatase 92 (38-126) U/L Total Creatine Kinase 25 L (30-135) U/L Troponin I < 0.012 (0.01-0.034) ng/mL NT-Pro-B Natriuret Pep 348 (<450) pg/mL Total Protein 6.6 (6.3-8.2) g/dL Albumin 3.3 L (3.5-5.0) g/dL Globulin 3.3 (1.7-4.1) g/dL Albumin/Globulin Ratio 1.0 (1.0-2.8) Lipase 38 (23-300) U/L Urine Color Yellow Urine Appearance Clear Urine pH 6.0 (4.5-8.0) Ur Specific [place] 1.020 (1.000-1.035) Urine Protein Negative (Negative) Urine Glucose (UA) Negative (Negative) g/dL Urine Ketones Negative (NEGATIVE) Urine Occult Blood Negative (Negative) Urine Nitrate Negative (Negative) Urine Bilirubin Negative (NEGATIVE) Urine Urobilinogen 1.0 (0.2) E.U./dL Ur Leukocyte Esterase Negative (NEGATIVE) Urine RBC None seen (0-5/HPF) Urine WBC 0-1/hpf (0-5/HPF) Ur Squamous Epith Cells 0-1 /hpf (0-5/HPF) Urine Bacteria None seen (None) Ur Culture Indicated? Cult not indicated Vol Urine Centrifuged 10ml (spun) MDM Narrative Medical decision making narrative: 84-year-old female with history of brain cancer and [employer] shunt, DNR/DNI code status, pulsed comfort measures, daughter medical power of claims attorney is driving here not yet arrived but phone call I had, we would like evaluation for reversible causes. Specifically daughter prefers we do CT brain imaging, EKG, chest x-ray, labs, urinalysis for now. Await her arrival for further direction of care, and discussion of testing results. CT head no acute changes. See radiology report. EKG sinus rhythm no acute changes obvious. Chest x-ray no acute changes. See radiology report. Lab data: White blood cell count 5200, hemoglobin 11.3, platelets adequate. Glucose 114. Normal renal function. Serum CO2 38 elevated. Potassium 3.9 normal. Sodium 136 mild decreased. Liver functions normal. Lipase normal. Lactate 1.1 normal. BNP not elevated. Urinalysis still pending, no urine output after 1st IV 1 L saline bolus, repeat saline bolus. 0600, Still no urine output with Purewick for collection. Bladder scan by nursing still small volume. Will give 3rd liter saline bolus, add potassium. UA volume yet to be collected. 0700, signed out to Dr Burden. 10/22/24 Dr. Burden: Patient signed out to myself. Awaiting urine sample for evaluation for AMS. Reviewed patient's workup. Labs show chronic anemia 11.3 normal white count and platelets, CO2 is 38 sodium is 136 chloride 97 otherwise normal electrolytes BUN creatinine glucose of 114 lactate 1 1 total CK was 25 troponin BNP were normal. Patient had non-con head CT which shows no acute change. Chest x-ray is negative. Patient appear to be clinically dry seeming 1/3 L of fluids as well as some potassium supplementation from overnight physician has not made any urine up to this point. Patient has been bradycardic but appears to be consistent with the patient's priors. Patient was DNR/DNI limited interventions, sent for decreased mentation and activity. Urinalysis shows 1 white cell 1 squamous no bacteria no nitrates no leuks. It was otherwise negative Seen and evaluated by myself. Spoke with family at bedside. Patient does have decreased mentation minimally interactive. He was noted to be bradycardic but seems pretty consistent with her prior visits. Spoke with daughter at bedside she expressed some interest in hospice we discussed if she would go back to the facility daughter is going to reach out to the facility. Daughter returned states facilities comfortable with her coming back. I think this would be appropriate especially if she was showing interested in hospice and does not wish for additional workup at this time. Discussed potentially end of life but did not find a clear source of her changes in mentation this time. We will see if MICROARRAY SPECIALIST available to meet with her discuss hospice as she was asking about that resource. MICROARRAY SPECIALIST did meet with the patient's daughter. Resources for hospice were shared. Patient awake, requesting breakfast and a pizza. Given oral am medication. Discharge Plan Departure Patient Disposition: Home Clinical Impression: Acute alteration in mental status Instructions: DI for Altered Mental Status Activity Restrictions/Additional Instructions: We did not find a clear source for your change in mentation. I have asked to do MICROARRAY SPECIALIST to meet with the you about hospice resources, I think this would be very appropriate if you choose to pursue hospice. Return as needed. Prescriptions: No Action acetaminophen 500 mg tablet 1,000 mg PO TID quetiapine 25 mg tablet 25 mg PO BID aspirin 81 mg tablet,delayed release (DR/EC) 81 mg PO DAILY trazodone 50 mg tablet 50 mg PO BEDTIME levetiracetam 500 mg tablet 500 mg PO BID diltiazem HCl 120 mg capsule,extended release 24hr 120 mg PO DAILY cholecalciferol (vitamin D3) [Vitamin D3] 50 mcg (2,000 unit) capsule 2,000 unit PO DAILY calcium citrate-vitamin D3 315 mg-6.25 mcg (250 unit) tablet 1 tab PO BID albuterol sulfate 90 mcg/actuation aerosol powdr breath activated 1 inh inhalation Q4-6H PRN (Reason: shortness of breath or wheezing) Qty: 1 0RF Referrals: Miscellaneous,Doctor, MD [Primary Care Provider, Medical] Stand Alone Forms: Patient Portal/API
[2024-10-21 21:34] VITALS: BP 105/43; PULSE 90; RESP 8; TEMP 34.3; O2SAT 90
--- NOTE | 2024-10-21 21:40 | DI.CT.S_ITS ---
PROCEDURE: CT HEAD/BRAIN WO CON INDICATIONS: brain tumor, [employer] shunt, weakness TECHNIQUE: Noncontrast 4.5 mm thick angled axial sections acquired from the foramen magnum to the vertex, with coronal and sagittal reformats. For radiation dose reduction, the following was used: automated exposure control, adjustment of mA and/or kV according to patient size. COMPARISON: [facility], CT, CT HEAD/BRAIN WO CON, 09/03/2024, 13:21. FINDINGS: Image quality: Diagnostic. CSF spaces: Stable positioning of right posterior parietal approach [employer] shunt with tip in the region of the foramen of [place]. Stable low attenuating subdural collections seen bilaterally. Basal cisterns are patent. Brain: No intracranial bleeds or mass effect. There is cerebral volume loss, with resultant ventricular and sulcal prominence. There are periventricular and deep white matter chronic small vessel ischemic changes. There is intracranial internal carotid artery atherosclerosis. Stable left cerebellar encephalomalacia consistent with postsurgical resection. Stable right frontal encephalomalacia. Skull and face: Left calvarial craniotomy. Calvarium and visualized facial bones appear intact, without suspicious lesions. Sinuses: Visualized sinuses and mastoids are clear. IMPRESSION: No acute intracranial pathology. Stable chronic findings as above. Approved by: Matilde Parker M.D.,Ph.D. on 10/21/2024 at 22:20
--- NOTE | 2024-10-21 21:44 | DI.RAD.S_ITS ---
PROCEDURE: XR CHEST 1V INDICATIONS: weakness TECHNIQUE: One view of the chest was acquired. COMPARISON: [facility], CR, XR CHEST 1V, 09/03/2024, 12:56. FINDINGS: Surgical changes and devices: None. Lungs and pleura: Lungs are clear. No pleural effusions or pneumothorax. Mediastinum: Mediastinal contours appear normal. Heart size is normal. Bones and chest wall: No suspicious bony lesions. Overlying soft tissues appear unremarkable. Chronic left proximal humerus deformity. IMPRESSION: No acute cardiopulmonary abnormality is seen. Approved by: Matilde Parker M.D.,Ph.D. on 10/21/2024 at 22:47
--- NOTE | 2024-10-21 21:44 | EKG_ITS ---
[address] [address] Test Date: 2024-10-21 Pat Name: Tari Olson Department: Room: Gender: Female Butt Sawyer: : 1940 Requested By: Order Number: [id number] Reading MD: Cesar Dumont MD Measurements Intervals [place] Rate: 48 P: 44 NM: 286 QRS: -58 QRSD: 90 T: 55 QT: 458 QTc: 409 Interpretive Statements Sinus bradycardia with 1st degree AV block Left anterior fascicular block Anteroseptal infarct , age undetermined Electronically Signed On 10-23-2024 7:53:43 PDT by Cesar Dumont MD
[2024-10-21 22:29] LABS: Add Manual Diff / Slide Review NO; Hematocrit 34.4 % (36-46); Hemoglobin 11.3 g/dL (12.0-16.0); Lymphocytes Absolute Auto 1000 /uL (1100-4500); Mean Corpuscular HGB Conc 32.9 % (30-36); Mean Corpuscular Hemoglobin 30.4 PG (26-34); Mean Corpuscular Volume 92.4 fL (80-100); Platelet Count 294 X10^3/uL (150-400)
[2024-10-21 22:41] LABS: Alanine Aminotransferase 12 IU/L (<35); Albumin 3.3 g/dL (3.5-5.0); Albumin Globulin Ratio 1.0 (1.0-2.8); Alkaline Phosphatase 92 U/L (38-126); Blood Urea Nitrogen 13 mg/dL (7-17); Calcium 8.8 mg/dL (8.4-10.2); Carbon Dioxide 38 mmol/L (22-32); Chloride 97 mmol/L (98-107); Creatine Kinase 25 U/L (30-135); Estimated Glomerular Filt Rate > 60 mL/min (>60); Globulin 3.3 g/dL (1.7-4.1); Glucose 114 mg/dL (70-99); HEMOLYSIS 15 (0-50); Lactate (Lactic Acid) 1.1 mmol/L (0.7-2.1); Lipase 38 U/L (23-300); Magnesium 1.8 mg/dL (1.6-2.3); Potassium 3.9 mmol/L (3.4-5.1); Sodium 136 mmol/L (137-145); Total Protein 6.6 g/dL (6.3-8.2)
[2024-10-21 22:52] LABS: NT-proBNP (BNP-Adult 18+) 348 pg/mL (<450); Troponin I < 0.012 ng/mL (0.01-0.034)
[2024-10-21 22:58] VITALS: BP 115/87; PULSE 55; RESP 7; O2SAT 100
[2024-10-22] VITALS (24 sets, daily range): BP systolic 112–193; BP diastolic 55–73; PULSE 45–96; RESP 9–23; O2SAT 92–100
[2024-10-22] MEDS: SODIUM CHLORIDE 0.9% 1,000 ML 500 ML IV (01:21)
[2024-10-22] MEDS: SODIUM CHLORIDE 0.9% 1,000 ML 1000 ML IV (04:11)
[2024-10-22] MEDS: SODIUM CHLORIDE 0.9% 1,000 ML 250 ML IV (05:27)
[2024-10-22] MEDS: POTASSIUM CHLORIDE IN WATER 10 MEQ/100 ML PIGGYBACK 100 MEQ IV (05:44)
--- NOTE | 2024-10-22 07:31 | PC.NURSE ---
Pt states she has no pain at this time. After 2 liters of NS pt still unable to urinate. Bladder scan multiple times only 115 ml.
[2024-10-22 08:26] LABS: Appearance Urine UA CLEAR; Bilirubin Urine UA NEGATIVE (NEGATIVE); Color Urine UA YELLOW; Glucose Urine UA NEGATIVE (Negative); Ketones Urine UA NEGATIVE (NEGATIVE); Leukocyte Esterase Urine UA NEGATIVE (NEGATIVE); Nitrite Urine UA NEGATIVE (Negative); Occult Blood Urine UA NEGATIVE (Negative); Protein Urine UA NEGATIVE (Negative); Specific Gravity Urine UA 1.020 (1.000-1.035); Urobilinogen Urine UA 1.0 E.U./dL (0.2)
[2024-10-22 08:31] LABS: pH Urine UA 6.0 (4.5-8.0)
[2024-10-22 08:32] LABS: Culture Indicated Urine Cult Not Indicated
--- NOTE | 2024-10-22 11:00 | CM.SWNOTE ---
Social Work Note This TELECOMMUNICATIONS MANAGER requested for consult to assist with patient's return to [facility] and discuss hospice options with daughter/DPOA edwin. Met w/daughter in ER [id number]; reviewed plan for today. Daughter agreeable with patient's return home to [facility] and has been in contact with business owner/engineer Phylicia P [phone] (cell). ED SPECIAL EDUCATION AIDE has arranged BLS transport for nut picker at 1135; Patient has cognitive impairment according to daughter and is weaker than usual. Discussed potential for out of pocket cost of BLS and daughter states understanding and agreement. Discussed hospice services, outlined what the service provides and provided a senior resource guide with [facility] contact information. Daughter appreciative and will continue to discuss hospice with [facility] business owner/engineer Phylicia. No further needs from this SW identified. Plan: Discharge back to [facility] via BLS, hospice information provided, daughter to follow up. REBECCA Lanza
== END 2024-10-22 11:50 | disposition home or self-care (01) ==
PROVIDERS: Emergency Medicine; Emergency Provider Emergency Medicine
DX: R41.82 Altered mental status, unspecified (principal); R00.1 Bradycardia, unspecified
CPT/HCPCS: 36415; 51701; 51798; 70450; 71045; 80053; 81001; 82550; 83605; 83690; 83735; 83880; 84484; 85025; 93005; 93010; 96361; 96365; 99284